=== PATIENT | male | born 1950 | race Caucasian/White ===

== ENCOUNTER 2020-06-08 06:12 | Outpatient (REF) | payer MEDICARE, SELFPAY ==
[2020-06-08 07:14] LABS: Estimated Average Glucose 111 mg/dL; Hemoglobin A1c % 5.5 %
[2020-06-08 07:36] LABS: Alanine Aminotransferase 21 U/L (0-40); Albumin Level 4.2 g/dL (3.5-5.0); Alkaline Phosphatase 51 U/L (39-117); Anion Gap 12 (12-20); Aspartate Amino Transferase 17 U/L (5-37); Bilirubin Total 0.7 mg/dL (0.0-1.0); Blood Urea Nitrogen 12 mg/dL (9-16); Calcium 9.1 mg/dL (8.4-10.2); Carbon Dioxide 33 mmol/L (22-29); Chloride 100 mmol/L (96-108); Cholesterol 169 mg/dL; Estimated Glomerular Filt Rate 58; Glucose Fasting 106 mg/dL (60-99); HDL Cholesterol 57 mg/dL; LDL Cholesterol Calculated 88 mg/dl; Potassium 4.5 mmol/l (3.3-5.1); Sodium 140 mmol/L (135-145); Total Protein 6.6 g/dL (6.5-8.0); Triglycerides 120 mg/dL
[2020-06-08 09:16] LABS: Creatinine Urine 130.07 mg/dL; Microalbum/Creatinine Ratio Ur 24.6 ug/mg cr
== END 2020-06-08 06:13 | disposition home or self-care (01) ==
LOC: HO.LABR 06:12
PROVIDERS: PCP Internal Medicine; Visit Provider Internal Medicine
DX: E11.9 Type 2 diabetes mellitus without complications (principal)
CPT/HCPCS: 80053; 80061; 82043; 83036

== ENCOUNTER 2020-10-20 08:59 | Outpatient (REF) | payer MEDICARE, SELFPAY ==
[2020-10-20 11:37] LABS: Estimated Average Glucose 114 mg/dL; Hemoglobin A1c % 5.6 %
[2020-10-20 11:48] LABS: Alanine Aminotransferase 21 U/L (0-40); Albumin Level 4.2 g/dL (3.5-5.0); Alkaline Phosphatase 55 U/L (39-117); Anion Gap 13 (12-20); Aspartate Amino Transferase 19 U/L (5-37); Bilirubin Total 0.8 mg/dL (0.0-1.0); Blood Urea Nitrogen 13 mg/dL (9-16); Calcium 8.8 mg/dL (8.4-10.2); Carbon Dioxide 30 mmol/L (22-29); Chloride 98 mmol/L (96-108); Cholesterol 143 mg/dL; Estimated Glomerular Filt Rate 53; Glucose Fasting 166 mg/dL (60-99); HDL Cholesterol 55 mg/dL; LDL Cholesterol Calculated 63 mg/dl; Potassium 4.1 mmol/L (3.3-5.1); Sodium 137 mmol/L (135-145); Total Protein 6.5 g/dL (6.5-8.0); Triglycerides 126 mg/dL
[2020-10-20 11:54] LABS: Creatinine Urine 118.99 mg/dL; Microalbum/Creatinine Ratio Ur 9.2 ug/mg cr
== END 2020-10-20 09:00 | disposition home or self-care (01) ==
LOC: HO.MANLDS 08:59
PROVIDERS: PCP Internal Medicine; Visit Provider Internal Medicine
DX: E11.9 Type 2 diabetes mellitus without complications (principal)
CPT/HCPCS: 36415; 80053; 80061; 82043; 83036

== ENCOUNTER 2021-01-27 06:02 | Outpatient (REF) | payer MEDICARE, SELFPAY ==
[2021-01-27 07:26] LABS: Alanine Aminotransferase 20 U/L (0-40); Albumin Level 4.2 g/dL (3.5-5.0); Alkaline Phosphatase 52 U/L (39-117); Anion Gap 12 (12-20); Aspartate Amino Transferase 18 U/L (5-37); Bilirubin Total 0.5 mg/dL (0.0-1.0); Blood Urea Nitrogen 10 mg/dL (9-16); Calcium 9.2 mg/dL (8.4-10.2); Carbon Dioxide 30 mmol/L (22-29); Chloride 102 mmol/L (96-108); Cholesterol 135 mg/dL; Estimated Glomerular Filt Rate 49; Glucose Random 102 mg/dL (60-115); HDL Cholesterol 51 mg/dL; LDL Cholesterol Calculated 67 mg/dl; Potassium 4.8 mmol/L (3.3-5.1); Sodium 139 mmol/L (135-145); Total Protein 6.4 g/dL (6.5-8.0); Triglycerides 85 mg/dL
[2021-01-27 08:13] LABS: Estimated Average Glucose 123 mg/dL; Hemoglobin A1c % 5.9 %
[2021-01-27 16:19] LABS: Microalbum/Creatinine Ratio Ur 3.8 ug/mg cr
== END 2021-01-27 06:03 | disposition home or self-care (01) ==
LOC: HO.LAB 06:02
PROVIDERS: PCP Internal Medicine; Visit Provider Internal Medicine
DX: E11.9 Type 2 diabetes mellitus without complications (principal)
CPT/HCPCS: 36415; 80053; 80061; 82043; 83036

== ENCOUNTER 2021-08-02 06:02 | Outpatient (REF) | payer MEDICARE, SELFPAY ==
[2021-08-02 07:21] LABS: Estimated Average Glucose 120 mg/dL; Hemoglobin A1c % 5.8 %
[2021-08-02 07:34] LABS: Alanine Aminotransferase 27 U/L (0-40); Albumin Level 4.1 g/dL (3.5-5.0); Alkaline Phosphatase 54 U/L (39-117); Anion Gap 12 (12-20); Aspartate Amino Transferase 23 U/L (5-37); Bilirubin Total 0.6 mg/dL (0.0-1.0); Blood Urea Nitrogen 12 mg/dL (9-16); Calcium 9.8 mg/dL (8.4-10.2); Carbon Dioxide 32 mmol/L (22-29); Chloride 103 mmol/L (96-108); Cholesterol 151 mg/dL; Estimated Glomerular Filt Rate 43; Glucose Random 124 mg/dL (60-115); HDL Cholesterol 53 mg/dL; LDL Cholesterol Calculated 74 mg/dl; Potassium 5.5 mmol/L (3.3-5.1); Sodium 141 mmol/L (135-145); Total Protein 6.7 g/dL (6.5-8.0); Triglycerides 124 mg/dL
== END 2021-08-02 06:03 | disposition home or self-care (01) ==
LOC: HO.LAB 06:02
PROVIDERS: PCP Internal Medicine; Visit Provider Internal Medicine
DX: E11.9 Type 2 diabetes mellitus without complications (principal)
CPT/HCPCS: 36415; 80053; 80061; 83036

== ENCOUNTER 2021-08-03 06:00 | Outpatient (REF) | payer MEDICARE, SELFPAY ==
[2021-08-03 08:05] LABS: Alanine Aminotransferase 26 U/L (0-40); Alkaline Phosphatase 53 U/L (39-117); Anion Gap 11 (12-20); Aspartate Amino Transferase 21 U/L (5-37); Bilirubin Total 0.6 mg/dL (0.0-1.0); Blood Urea Nitrogen 14 mg/dL (9-16); Calcium 9.7 mg/dL (8.4-10.2); Carbon Dioxide 31 mmol/L (22-29); Chloride 103 mmol/L (96-108); Cholesterol 146 mg/dL; Estimated Glomerular Filt Rate 45; Glucose Random 122 mg/dL (60-115); HDL Cholesterol 51 mg/dL; LDL Cholesterol Calculated 74 mg/dl; Potassium 5.1 mmol/L (3.3-5.1); Sodium 140 mmol/L (135-145); Total Protein 6.6 g/dL (6.5-8.0); Triglycerides 106 mg/dL
[2021-08-03 08:46] LABS: Estimated Average Glucose 120 mg/dL; Hemoglobin A1c % 5.8 %
== END 2021-08-03 06:01 | disposition home or self-care (01) ==
LOC: HO.LAB 06:00
PROVIDERS: PCP Internal Medicine; Visit Provider Internal Medicine
DX: E11.9 Type 2 diabetes mellitus without complications (principal)
CPT/HCPCS: 36415; 80053; 80061; 83036

== ENCOUNTER 2021-09-20 12:11 | Outpatient (REF) | payer MEDICARE, SELFPAY ==
[2021-09-20 13:31] LABS: Appearance Urine CLEAR; Color Urine YELLOW; Glucose Urine UA NEG (NEG); Leukocyte Esterase Urine NEG (NEG); Nitrite Urine NEG (NEG); PH 5.5 (5.0-8.0); UACC Culture Trigger NO; Urine Blood 1+ (NEG); Urine Ketones NEG (NEG); Urine Protein NEG (NEG-TRACE)
[2021-09-20 13:53] LABS: WBC Urine 0 /HPF (0-4)
== END 2021-09-20 12:12 | disposition home or self-care (01) ==
LOC: HO.MANLDS 12:11
PROVIDERS: PCP Physician Assistant; Visit Provider Physician Assistant
DX: R10.0 Acute abdomen (principal)
CPT/HCPCS: 81001

== ENCOUNTER 2021-11-30 06:18 | Outpatient (REF) | payer MEDICARE, SELFPAY ==
--- NOTE | ~2021-11-30 | XR_ITS ---
EXAMINATION: XR KNEE, RIGHT CLINICAL INFORMATION: Knee pain COMPARISON: None TECHNIQUE: Four views of the right knee. FINDINGS: No fracture or dislocation. No significant effusion. Small marginal patellar spurs. Joint spaces are relatively maintained. XR/XR knee RT 3V IMPRESSION: Patellar degenerative spurring. No acute osseous abnormality.
== END 2021-11-30 06:19 | disposition home or self-care (01) ==
LOC: HO.XRAY 06:18
PROVIDERS: PCP Internal Medicine; Visit Provider Internal Medicine
DX: M25.561 Pain in right knee (principal)
CPT/HCPCS: 73562

== ENCOUNTER 2021-12-28 05:59 | Outpatient (REF) | payer MEDICARE, SELFPAY ==
[2021-12-28 07:40] LABS: Estimated Average Glucose 120 mg/dL; Hemoglobin A1C 163.8914 umol/L; Hemoglobin A1c % 5.8 %
[2021-12-28 08:01] LABS: Alanine Aminotransferase 30 U/L (0-40); Albumin Level 4.2 g/dL (3.5-5.0); Alkaline Phosphatase 57 U/L (39-117); Anion Gap 12 (12-20); Aspartate Amino Transferase 21 U/L (5-37); Bilirubin Total 0.6 mg/dL (0.0-1.0); Blood Urea Nitrogen 12 mg/dL (9-16); Calcium 9.4 mg/dL (8.4-10.2); Carbon Dioxide 29 mmol/L (22-29); Chloride 102 mmol/L (96-108); Estimated Glomerular Filt Rate 48; Glucose Random 114 mg/dL (60-115); Potassium 5.3 mmol/L (3.3-5.1); Sodium 138 mmol/L (135-145); Total Protein 6.5 g/dL (6.5-8.0)
== END 2021-12-28 06:00 | disposition home or self-care (01) ==
LOC: HO.LAB 05:59
PROVIDERS: PCP Internal Medicine; Visit Provider Internal Medicine
DX: R73.01 Impaired fasting glucose (principal)
CPT/HCPCS: 36415; 80053; 83036

== ENCOUNTER 2022-06-30 06:17 | Outpatient (REF) | payer MEDICARE, SELFPAY ==
[2022-06-30 07:57] LABS: Estimated Average Glucose 114 mg/dL; Hemoglobin A1c % 5.6 %
[2022-06-30 08:33] LABS: Alanine Aminotransferase 47 U/L (0-40); Albumin Level 4.1 g/dL (3.5-5.0); Alkaline Phosphatase 56 U/L (39-117); Anion Gap 14 (12-20); Aspartate Amino Transferase 46 U/L (5-37); Bilirubin Total 0.5 mg/dL (0.0-1.0); Blood Urea Nitrogen 24 mg/dL (9-16); Calcium 8.9 mg/dL (8.4-10.2); Carbon Dioxide 28 mmol/L (22-29); Chloride 101 mmol/L (96-108); Estimated Glomerular Filt Rate 47; Glucose Random 101 mg/dL (60-115); Potassium 5.1 mmol/L (3.3-5.1); Sodium 138 mmol/L (135-145); Total Protein 6.3 g/dL (6.5-8.0)
== END 2022-06-30 06:18 | disposition home or self-care (01) ==
LOC: HO.LAB 06:17
PROVIDERS: PCP Internal Medicine; Visit Provider Internal Medicine
DX: R73.01 Impaired fasting glucose (principal)
CPT/HCPCS: 36415; 80053; 83036

== ENCOUNTER 2023-01-02 06:02 | Outpatient (REF) | payer MEDICARE, SELFPAY ==
[2023-01-02 08:04] LABS: Estimated Average Glucose 108 mg/dL; Hemoglobin A1c % 5.4 %
== END 2023-01-02 06:03 | disposition home or self-care (01) ==
LOC: HO.LAB 06:02
PROVIDERS: PCP Internal Medicine; Visit Provider Internal Medicine
DX: R73.01 Impaired fasting glucose (principal)
CPT/HCPCS: 36415; 83036

== ENCOUNTER 2023-06-06 09:03 | Outpatient (REF) | payer MEDICARE, SELFPAY ==
[2023-06-07 08:33] LABS: HBS Num1 108.81 mIU/mL (0-7.99); HBc Num1 5.89 S/CO (0.00-0.79); HBsAGNum1 0.31 S/CO (0.00-0.99); Hepatitis B Surface Antigen Negative (Negative); ~Hepatitis B Surface Antibody REACTIVE (Nonreactive)
[2023-06-07 09:47] LABS: HBc Num3 6.35 S/CO; Hepatitis B Core Antibody Reactive (Nonreactive)
== END 2023-06-06 09:04 | disposition home or self-care (01) ==
LOC: HO.MANLNP 09:03
PROVIDERS: Visit Provider Internal Medicine
DX: Z86.19 Personal history of other infectious and parasitic diseases (principal)
CPT/HCPCS: 36415; 86704; 86706; 87340

== ENCOUNTER 2023-06-26 08:29 | Outpatient (REF) | payer MEDICARE, SELFPAY ==
[2023-06-26 10:09] LABS: Alanine Aminotransferase 24 U/L (0-40); Albumin Level 4.1 g/dL (3.5-5.0); Alkaline Phosphatase 57 U/L (39-117); Anion Gap 11 (12-20); Aspartate Amino Transferase 19 U/L (5-37); Bilirubin Total 0.4 mg/dL (0.0-1.0); Blood Urea Nitrogen 15 mg/dL (9-16); Calcium 9.2 mg/dL (8.4-10.2); Carbon Dioxide 30 mmol/L (22-29); Chloride 102 mmol/L (96-108); Estimated Glomerular Filt Rate 60; Glucose Random 103 mg/dL (60-115); Potassium 4.4 mmol/L (3.3-5.1); Sodium 139 mmol/L (135-145); Total Protein 6.7 g/dL (6.5-8.0)
== END 2023-06-26 08:30 | disposition home or self-care (01) ==
LOC: HO.LAB 08:29
PROVIDERS: PCP Internal Medicine; Visit Provider Internal Medicine
DX: R73.01 Impaired fasting glucose (principal)
CPT/HCPCS: 36415; 80053

== ENCOUNTER 2023-06-27 07:40 | Outpatient (REF) | payer MEDICARE, SELFPAY ==
[2023-06-27 09:12] LABS: Estimated Average Glucose 117 mg/dL; Hemoglobin A1C 143.3119 umol/L; Hemoglobin A1c % 5.7 % (<6.0)
== END 2023-06-27 07:41 | disposition home or self-care (01) ==
LOC: HO.LAB 07:40
PROVIDERS: PCP Internal Medicine; Visit Provider Internal Medicine
DX: R73.01 Impaired fasting glucose (principal)
CPT/HCPCS: 36415; 83036

== ENCOUNTER 2023-10-20 09:01 | Outpatient (REF) | payer MEDICARE, SELFPAY ==
[2023-10-20 14:29] LABS: Estimated Average Glucose 120 mg/dL; Hemoglobin A1C 150.8553 umol/L; Hemoglobin A1c % 5.8 % (<6.0)
[2023-10-20 14:42] LABS: Creatinine Urine 215.55 mg/dL; Microalbum/Creatinine Ratio Ur 9.7 ug/mg cr (<30)
[2023-10-20 14:51] LABS: Alanine Aminotransferase 25 U/L (0-40); Alkaline Phosphatase 52 U/L (39-117); Anion Gap 12 (12-20); Aspartate Amino Transferase 21 U/L (5-37); Bilirubin Total 0.5 mg/dL (0.0-1.0); Blood Urea Nitrogen 16 mg/dL (9-16); Calcium 9.4 mg/dL (8.4-10.2); Carbon Dioxide 28 mmol/L (22-29); Chloride 106 mmol/L (96-108); Cholesterol 157 mg/dL (<200); Estimated Glomerular Filt Rate 56; Glucose Random 98 mg/dL (60-115); HDL Cholesterol 52 mg/dL (>40); LDL Cholesterol Calculated 74 mg/dL (<100); Potassium 4.6 mmol/L (3.3-5.1); Sodium 141 mmol/L (135-145); Total Protein 6.7 g/dL (6.5-8.0); Triglycerides 157 mg/dL (<150)
== END 2023-10-20 09:02 | disposition home or self-care (01) ==
LOC: HO.MANLDS 09:01
PROVIDERS: Visit Provider Internal Medicine
DX: Z13.6 Encounter for screening for cardiovascular disorders (principal); R73.01 Impaired fasting glucose
CPT/HCPCS: 36415; 80053; 80061; 82043; 82570; 83036

== ENCOUNTER 2024-04-29 07:08 | Outpatient (REF) | payer MEDICARE, SELFPAY ==
[2024-04-29 07:50] LABS: Estimated Average Glucose 114 mg/dL; Hemoglobin A1C 154.9986 umol/L; Hemoglobin A1c % 5.6 % (<6.0); Total Hemoglobin (HGBA1C) 4100.0435 umol/L
[2024-04-29 08:12] LABS: Alanine Aminotransferase 23 U/L (0-40); Albumin Level 4.5 g/dL (3.5-5.0); Alkaline Phosphatase 66 U/L (39-117); Anion Gap 15 (12-20); Aspartate Amino Transferase 26 U/L (5-37); Bilirubin Total 0.6 mg/dL (0.0-1.0); Blood Urea Nitrogen 18 mg/dL (9-16); Calcium 9.9 mg/dL (8.4-10.2); Carbon Dioxide 27 mmol/L (22-29); Chloride 100 mmol/L (96-108); Cholesterol 119 mg/dL (<200); Estimated Glomerular Filt Rate 44; Glucose Random 98 mg/dL (60-115); HDL Cholesterol 49 mg/dL (>40); LDL Cholesterol Calculated 56 mg/dL (<100); Potassium 4.3 mmol/L (3.3-5.1); Sodium 138 mmol/L (135-145); Total Protein 7.2 g/dL (6.5-8.0); Triglycerides 73 mg/dL (<150)
[2024-04-29 10:57] LABS: Creatinine Urine 348.44 mg/dL; Microalbum/Creatinine Ratio Ur 5.4 ug/mg cr (<30)
== END 2024-04-29 07:09 | disposition home or self-care (01) ==
LOC: HO.LAB 07:08
PROVIDERS: PCP Internal Medicine; Visit Provider Internal Medicine
DX: R73.01 Impaired fasting glucose (principal)
CPT/HCPCS: 36415; 80053; 80061; 82043; 82570; 83036

== ENCOUNTER 2024-05-03 09:36 | Inpatient (IN) | payer MEDICARE, SELFPAY ==
[2024-05-03] VITALS (31 sets, daily range): BP systolic 60–142; BP diastolic 29–57; PULSE 57–83; RESP 14–17; TEMP 34.4–36.5; O2SAT 97–100; BMI 27.1; BMI 27.3
--- NOTE | ~2024-05-03 | XR_ITS ---
EXAMINATION: XR CHEST CLINICAL INFORMATION: Dizziness COMPARISON: None available. TECHNIQUE: Frontal view of the chest was obtained. FINDINGS: No significant abnormality is noted involving the heart, lungs, mediastinum, bony thorax or soft tissues. XR/XR chest 1V IMPRESSION: Unremarkable examination. Electronically signed by: Penelope Carey MD 05/03/2024 12:38 PM EDT RP
--- NOTE | ~2024-05-03 | CT_ITS ---
EXAMINATION: CT CHEST, ABDOMEN AND PELVIS WITH CONTRAST CLINICAL INFORMATION: Syncope. Shock. COMPARISON: Chest radiograph done earlier the same day. TECHNIQUE: Contiguous axial thin section helical images of the chest, abdomen and pelvis were performed following the administration of oral contrast and 85 mL of intravenous Omnipaque 350. The data set was reformatted in the coronal and sagittal planes and reviewed on an independent workstation. This CT examination was performed using dose optimization techniques as appropriate, variously including the following: *Automated exposure control *Adjustment of mA and/or kV according to patient size (this includes techniques or standardized protocols for targeted exams where dose is matched to indication/reason for exam; i.e. extremities or head) *Use of iterative reconstruction technique DLP: 1127 mGy-cm FINDINGS: LUNGS: There are scattered areas of mild linear subpleural scarring, most prominent within the lateral aspect of the left upper lobe. No focal airspace consolidation. No significant pulmonary nodule or mass. The central airways are patent. PLEURA: No pleural effusion or pneumothorax. No pleural mass or thickening. MEDIASTINUM: No cardiomegaly. No significant pericardial effusion. No thoracic aortic dilatation or dissection. No significant mediastinal or hilar lymphadenopathy. CORONARY ARTERY CALCIFICATION: None present. CHEST WALL/AXILLA: No lymphadenopathy. THYROID: Unremarkable. LIVER, GALLBLADDER, AND BILIARY TREE: Normal size, shape, and attenuation. No focal hepatic lesion. No intra or extrahepatic biliary ductal dilatation. The gallbladder is unremarkable with no evidence of radiopaque gallstones, gallbladder wall thickening, or obvious pericholecystic inflammatory changes. PANCREAS: Unremarkable. SPLEEN: Unremarkable. ADRENAL GLANDS: Unremarkable. KIDNEYS AND URETERS: Normal size, shape, and attenuation. No hydronephrosis, hydroureter, or calculi. Multiple simple appearing left renal cysts with the largest in the upper pole measuring up to 6.6 cm. Findings are not clinically significant and no dedicated follow-up imaging is recommended. No enhancing renal parenchymal lesion. No perinephric stranding. BLADDER: Unremarkable. No wall thickening or inflammatory change. GASTROINTESTINAL TRACT: No small or large bowel obstruction. No bowel wall thickening or inflammatory change. Scattered sigmoid diverticulosis without evidence of acute diverticulitis. Moderate stool within the rectum. Unremarkable appendix. PERITONEAL CAVITY: No intra-abdominal free air or free fluid. No intra-abdominal mass or organized fluid collection/abscess formation. ABDOMINAL WALL: No significant abdominal wall hernia. LYMPH NODES: No significant lymphadenopathy. VASCULAR: Contrast opacifies the abdominal aorta and its branch vessels. No abdominal aortic dilatation or dissection. Scattered atherosclerotic calcifications. The IVC is unremarkable. PELVIC VISCERA: Small prostate calcifications. OSSEOUS STRUCTURES: No acute osseous abnormality. No lytic or blastic osseous lesion. CT/CT abdomen pelvis w IV con IMPRESSION: 1. Scattered areas of linear subpleural scarring, most prominent within the lateral aspect of the left upper lobe. No focal airspace consolidation. 2. No significant pulmonary nodule or mass. 3. No significant lymphadenopathy. 4. No intra-abdominal mass or ascites. 5. Moderate stool within the rectum. Sigmoid diverticulosis without evidence of acute diverticulitis. No small or large bowel obstruction. Unremarkable appendix. Electronically signed by: Adilson Kuo MD 05/03/2024 03:25 PM EDT
--- NOTE | ~2024-05-03 | CT_ITS ---
EXAMINATION: CT HEAD WITHOUT CONTRAST CLINICAL INFORMATION: unwitnessed fall, head strike COMPARISON: None available. TECHNIQUE: Contiguous axial imaging was performed from the skull base to vertex without intravenous administration of contrast. This CT examination was performed using dose optimization techniques as appropriate, variously including the following: *Automated exposure control *Adjustment of mA and/or kV according to patient size (this includes techniques or standardized protocols for targeted exams where dose is matched to indication/reason for exam; i.e. extremities or head) *Use of iterative reconstruction technique DLP: 765 mGy-cm FINDINGS: Bony calvarium is intact. Skull base is intact. No acute intracranial hemorrhage, mass effect, midline shift, hydrocephalus or herniation. Rodriguez-white matter differentiation is normal. Posterior cranial fossa contents demonstrated no acute intracranial hemorrhage or mass effect. Prominence of the extra-axial cc spaces, cerebral sulci and ventricles likely central volume loss. Calcified plaques in the cavernous segments both ICA. Tympanic cavities and mastoid air cells are aerated. No air-fluid levels in the included paranasal sinuses. CT/CT head/brain wo IV con IMPRESSION: No acute fracture, bony calvarium. No acute intracranial hemorrhage. Electronically signed by: Nura Sexton MD 05/03/2024 10:51 AM EDT
--- NOTE | ~2024-05-03 | XR_ITS ---
EXAMINATION: XR CHEST CLINICAL INFORMATION: Status post line placement. COMPARISON: Chest radiograph dated May 03, 2024 at 11:16 AM. TECHNIQUE: Frontal view of the chest was obtained. FINDINGS: There is a new right internal jugular vein catheter. The tip overlies the cavoatrial junction. The heart is normal in size. There is calcific atherosclerotic disease of the aorta. No consolidation. No large pleural effusion. No pneumothorax. No acute osseous abnormality. XR/XR chest 1V IMPRESSION: Status post placement of a right internal jugular vein catheter. The tip overlies the cavoatrial junction. No pneumothorax. The heart and lungs are otherwise unchanged in appearance compared with chest radiograph performed earlier in the day. Electronically signed by: Hermilo Braswell DO 05/03/2024 06:38 PM EDT
--- NOTE | ~2024-05-03 | CT_ITS ---
EXAMINATION: CT CERVICAL SPINE WITHOUT CONTRAST CLINICAL INFORMATION: Status post fall. COMPARISON: None available. TECHNIQUE: Contiguous axial images through the cervical spine using 3 mm collimation with bone and soft tissue algorithm. Sagittal and coronal reformatted images acquired. This CT examination was performed using dose optimization techniques as appropriate, variously including the following: *Automated exposure control *Adjustment of mA and/or kV according to patient size (this includes techniques or standardized protocols for targeted exams where dose is matched to indication/reason for exam; i.e. extremities or head) *Use of iterative reconstruction technique DLP: 354 mGy-cm FINDINGS: Craniocervical junction is intact. No acute cortical disruption. No gross trauma related malalignment. Marginal osteophyte formation and syndesmophyte formation with intervertebral disc height at C5-6, C6-7 and to a lesser extent C3-4 levels.. Right paracentral disc osteophyte complex formation resulting in decreased AP diameter in central spinal canal at C6-7. Grade 1 anterolisthesis C4-5 and C7-T1 on a degenerative basis. No gross prevertebral compartment hematoma. Tympanic cavities and mastoid air cells are aerated. CT/CT cervical spine wo IV con IMPRESSION: Multilevel cervical spondylosis without acute fracture or trauma-related listhesis Central spinal canal stenosis on a multifactorial basis at C6-7. Electronically signed by: Nura Sexton MD 05/03/2024 10:57 AM EDT
--- NOTE | 2024-05-03 09:42 | ECG_ITS ---
Test Reason : FALL Blood Pressure : / mmHG Vent. Rate : 067 BPM Atrial Rate : 067 BPM P-R Int : 122 ms QRS Dur : 088 ms QT Int : 458 ms P-R-T Axes : 073 057 052 degrees QTc Int : 483 ms Normal sinus rhythm Prolonged QT Abnormal ECG No previous ECGs available Referred By: Generic ED Physician Electronically Signed By:Scooter Biswas
--- NOTE | 2024-05-03 10:07 | ED.SYNCOPE ---
HPI - Syncope General Chief Complaint: Syncope Stated Complaint: UNKNOWN Time Seen by Provider: 05/03/24 09:57 Source: patient, EMS, RN notes reviewed and old records reviewed Mode of arrival: EMS Limitations: no limitations History of Present Illness ED Provider: Ani Dodd PA-C HPI narrative: 74 yo male with history of HTN, diverticulitis, anxiety, benign nocturnal myoclonus, depression, osteoarthritis who presents to the ER via EMS after he syncopized in the parking lot of his doctor's office today. He reports when he woke up today he was feeling his usual self. He was driving to the office for a routine appointment with his PCP when he started to get sensitivity to the light, that the sun was too bright. He made it to the office and got out of his car. When he stood up he was dizzy and does not recall what happened next. He reportedly syncopized and hit the back of his head. He was unresponsive for bystanders. No seizure like activity. On EMS arrival patient was hypotensive 60/30s. An IV was established and he was given 1L IVF and brought to the ER. On arrival patient is AAO x3 and denies all physical complaints. He reports he has been under significant stress lately and not eating well. He has been missing his medications here and there. He is reportedly on terazosin and clonazepam which he took this morning. He is also on aspirin but denies other prescription meds. Denies drug or alcohol use. MD complaint: loss of consciousness and collapsed Onset (ago): minute(s) Prodromal symptoms: lightheaded Witnessed: Yes - by Bystander Context: standing up Injuries sustained associated with event: none Current symptoms: back to baseline History: previous syncopal episode (when he was being treated for diverticulitis and was on augmentin - passed out in his kitchen he thinks from being on augmentin) Treatments prior to arrival: IV fluids Related Data Home Medications ?Medication ?Instructions ?Recorded ?Confirmed aspirin 81 mg tablet,delayed 81 mg PO DAILY 05/03/24 05/03/24 release atenolol 25 mg tablet 25 mg PO DAILY 05/03/24 05/03/24 bupropion HCl 150 mg tablet,12 hr 150 mg PO BID PRN Nicotine Cravings 05/03/24 05/03/24 sustained-release clonazepam 2 mg tablet 2 mg PO BEDTIME PRN Anxiety 05/03/24 05/03/24 enalapril maleate 20 mg tablet 20 mg PO BEDTIME 05/03/24 05/03/24 multivitamin 1 tab PO DAILY 05/03/24 05/03/24 naloxone 4 mg/actuation nasal spray 4 mg intranasal Q3M PRN Opioid 05/03/24 05/03/24 Overdose pravastatin 40 mg tablet 40 mg PO BEDTIME 05/03/24 05/03/24 terazosin 10 mg capsule 10 mg PO DAILY 05/03/24 05/03/24 trazodone 50 mg tablet 50 mg PO BEDTIME PRN Sleep 05/03/24 05/03/24 Allergies Allergy/AdvReac Type Severity Reaction Status Date / Time amoxicillin [From Augmentin] AdvReac Unknown Verified 05/03/24 09:46 clavulanic acid AdvReac Unknown Verified 05/03/24 09:46 [From Augmentin] Review of Systems Review of Systems: Yes all other systems are reviewed and are negative [facility] Social History Social History Advance Directives: No Advance Directives Information Provided: No Do you have a plan to hurt others: No Plan Physical Exam Vital Signs: Vital Signs: Last Vital Signs Temp 97.3 F 05/03/24 15:31 Pulse 69 05/03/24 15:31 Resp 15 05/03/24 15:31 BP 114/44 L 05/03/24 15:31 Pulse Ox 98 05/03/24 15:31 O2 Del Method Room Air 05/03/24 14:50 BMI result Body Mass Index 27.3 Appearance: Alert. Pale, elderly male Oriented X3. No acute distress. Head: normocephalic, there is a superficial abrasion/skin tear in the occipital region with a small amount of dried blood, no active bleeding, no significant associated swelling Eyes: Pupils equal, round and reactive to light. ENT: Pharynx with dry mucus membranes. No tonsillar swelling or exudate. Neck: Normal inspection. Neck supple. No midline tenderness CVS: Normal heart rate and rhythm. Pulses normal. Respiratory: No respiratory distress. Breath sounds normal. Abdomen: Soft and nontender. +BS x4 Skin: Skin warm and dry. Normal skin color. Normal skin turgor. No rashes. Extremities: No lower extremity edema. No joint swelling. Neuro/psych: Oriented X 3. No motor deficit. No sensory deficit. CN II-XII intact. Slightly slurred speech and normal cognition. Course Reevaluation(s) Reevaluation #1: Blood pressure improving with IV fluid resuscitation. Patient continues to have no complaints. He was placed with a Satya Hugger for hypothermia, temperature 94 degrees. Rectal probe placed. Time: 11:16 Reevaluation #2: IV fluids completed at 11:45. Focused sepsis exam performed. Patient remains hypotensive. He is tired but easily arouses to voice. He denies any pain or physical symptoms. CT scans of his abdomen and pelvis were added for further evaluation. He is getting vanco. Blood pressure currently 80/30s after IV fluid resuscitation. Will start Levophed for assumed septic shock. He is warm and well perfused, low suspicion for cardiogenic shock Time: 12:34 Medications Administered Generic Name Dose Route Start Last Admin Trade Name Freq PRN Reason Stop Dose Admin Heparin Sodium (Porcine) 5,000 unit 05/03/24 15:45 05/03/24 15:51 Heparin Sodium,Porcine 5,000 Unit/Ml Vial SUBCUT 5,000 unit Q8H HOOD Administration Norepinephrine Bitartrate 8 mg in 250 mls @ 0 mls/hr 05/03/24 12:45 05/03/24 15:19 Levophed IVCONT 0.13 mcg/kg/min .Q0M HOOD 19.26 mls/hr Titration Protocol Per Protocol Discontinued Medications Generic Name Dose Route Start Last Admin Trade Name Freq PRN Reason Stop Dose Admin Ceftriaxone Sodium 1 gm 05/03/24 10:16 05/03/24 11:01 Ceftriaxone Sodium 1 Gm Vial IVPUSH 05/03/24 10:17 1 gm ONCE ONE Administration Lactated Ringer's 2,370 mls @ 2,370 mls/hr 05/03/24 09:57 05/03/24 11:44 Lr 30 ml/kg infuse over 1 hr (2370 ml) 05/03/24 10:56 Infused IV Infusion .Q1H ONE Vancomycin HCl 2,000 mg in 500 mls @ 250 mls/hr 05/03/24 11:29 05/03/24 14:17 Vancomycin/Ns IV 05/03/24 13:28 Infused ONCE ONE Infusion Iohexol 85 ml 05/03/24 13:59 05/03/24 13:59 Iohexol 350 Mg/Ml 75 Ml Infus..Btl IV 05/03/24 14:00 85 ml ONCE ONE Administration Medical Decision Making Medical Decision Making [facility] Narrative: 74 yo male with history of HTN, anxiety on chronic klonopin, OA, benign nocturnal myoclonus who presents via EMS for evaluation of syncopal event, found to be significantly hypotensive 60/30. Given 1L IVF en route and still hypotensive 77/29 on arrival, hypothermic 94 degrees. Could be environmental exposure but there is also concern for sepsis and septic shock. He has no physical complaints, no dizziness, lightheadedness, chest pain, abdominal pain, urinary symptoms. No URI symptoms. 30c/kg LR sepsis bolus ordered along w/ empiric ceftriaxone pending workup. Labs showing no leukocytosis, mild normocytic anemia, mild thrombocytopenia. He has CKD which appears to be at baseline with BUN/Cr 19/1.56. Lactic acid is 4.0. Viral swab is negative for COVID/Flu/RSV. 11:45 - Warming blanket applied. BP slowing improving with IVF resuscitation. AAO x3 without complaints. primary concern is still sepsis, however no source identified at this time. CT scans of the chest/abd/pelvis were ordered for further evaluation. vancomycin added for additional coverage. 12:45 - requiring vasopressors for BP support. if titrating up will need central line. CT scans still pending. 15:00 - right TLC in place. CT C/A/P without obvious source of infection. lactic acid improved to 1.4. UA negative for infection. Utox + amphetamines and negative for benzos which he has been on for years. continues to require levophed, will admit to ICU for undifferentiated shock. Differential Diagnosis Differential Diagnoses: The differential diagnosis associated with the presentation includes septic shock, cardiogenic shock, dehydration, SAIRA, PNA, UTI, viral sepsis, adrenal insufficiency Admission/Observation Consideration of admission/observation: Escalation of care including admission/observation considered Consult Healthcare Provider Management of the patient was discussed with: Stamp Machine Servicer Dr. Mccloud Lab Data [facility] Lab Attestation statement: I reviewed the patient's lab results. 05/03/24 10:54 05/03/24 10:54 Labs: Lab Results 05/03/24 05/03/24 05/03/24 Range/Units 10:54 10:55 11:02 WBC 8.9 (4.8-10.8) X10*3/uL RBC 3.78 L (4.60-5.80) X10*6/uL Hgb 12.4 L (14.0-18.0) g/dl Hct 35.4 L (42.0-52.0) % MCV 93.7 (80.0-98.0) fL MCH 32.8 (27.0-33.0) pg MCHC 35.0 (31.0-36.0) g/dl RDW 12.8 (11.0-16.0) % Plt Count 142 L (160-400) X10*3/uL MPV 10.2 (9.4-12.4) fL Immature Gran % (Auto) 0.4 (0.0-0.4) % Neut % (Auto) 73.8 H (45-73) % Lymph % (Auto) 16.7 L (20-40) % [place] % (Auto) 8.5 (2-11) % Eos % (Auto) 0.3 (0-4) % Baso % (Auto) 0.3 (0-2) % Lymph # (Auto) 1.5 (1.2-4.9) X10*3/uL [place] # (Auto) 0.8 (0.1-1.2) X10*3/uL Eos # (Auto) 0.0 (0.0-0.4) X10*3/uL Baso # (Auto) 0.0 (0.0-0.2) X10*3/uL Abs Immat Gran (auto) 0.04 H (0.00-0.03) X10*3/uL Absolute Neuts (auto) 6.6 (2.0-8.3) x10*3/uL Absolute Nucleated RBC 0.000 (0.0-0.012) X10*3/uL Nucleated RBC % (auto) 0.0 (0.0-0.2) /100WBC ESR 7 (0-15) MM/HR VBG pH 7.39 (7.32-7.43) VBG pCO2 38 mmHg VBG pO2 72 mmHg VBG HCO3 23 (22-26) mmol/L VBG O2 Saturation 95.0 % VBG Base Excess -1.2 mmol/L Sodium 139 (135-145) mmol/L Potassium 4.0 (3.3-5.1) mmol/L Chloride 105 (96-108) mmol/L Carbon Dioxide 23 (22-29) mmol/L Anion Gap 15 (12-20) BUN 19 H (9-16) mg/dL Creatinine 1.56 H (0.5-1.4) mg/dL Estim Creat Clear Calc 38.8 Estimated GFR 44 Random Glucose 131 H (60-115) mg/dL Lactic Acid 4.0 H* (0.5-2.0) mmol/L Lactic Acid F/U @ 2Hr (0.5-2.0) mmol/L Calcium 8.9 D (8.4-10.2) mg/dL Total Bilirubin 0.7 (0.0-1.0) mg/dL AST 31 (5-37) U/L ALT 16 (0-40) U/L Alkaline Phosphatase 49 (39-117) U/L Troponin I High Sens 5.7 (<3.5-35.0) ng/L C-Reactive Protein 0.13 (< or = 0.50) mg/dL Total Protein 5.3 L (6.5-8.0) g/dL Albumin 3.3 L (3.5-5.0) g/dL Lipase 21 (8-78) U/L TSH 2.07 (0.32-4.0) uIU/mL Urine Color Urine Appearance Urine pH (5.0-9.0) Ur Specific [place] (1.005-1.025) Urine Protein (Neg-Trace) mg/dL Urine Glucose (UA) (Negative) mg/dL Urine Ketones (Negative) mg/dL Urine Blood (Negative) Urine Nitrite (Negative) Ur Leukocyte Esterase (Negative) Urine RBC (0-2) /HPF Urine WBC (0-5) /HPF Ur Squamous Epith Cells (0-2) /HPF Urine Bacteria (None Seen) Hyaline Casts (0-2) /LPF Urine Opiates Screen (Not Detect) Ur Buprenorphine Scrn (Not Detect) ng/mL Ur Oxycodone Screen (Not Detect) ng/mL Urine Methadone Screen (Not Detect) ng/mL Urine Fentanyl Screen (Not Detect) Ur Barbiturates Screen (Not Detect) Ur Phencyclidine Scrn (Not Detect) Ur Amphetamines Screen (Not Detect) U Benzodiazepines Scrn (Not Detect) Urine Cocaine Screen (Not Detect) U Marijuana (THC) Screen (Not Detect) Ethyl Alcohol < 10 mg/dL Influenza Type A (PCR) NEGATIVE (Negative) Influenza Type B (PCR) NEGATIVE (Negative) RSV RNA Qual (PCR) NEGATIVE (Negative) SARS-CoV-2 RNA (RT-PCR) NEGATIVE (Negative) 05/03/24 05/03/24 Range/Units 12:56 13:44 WBC (4.8-10.8) X10*3/uL RBC (4.60-5.80) X10*6/uL Hgb (14.0-18.0) g/dl Hct (42.0-52.0) % MCV (80.0-98.0) fL MCH (27.0-33.0) pg MCHC (31.0-36.0) g/dl RDW (11.0-16.0) % Plt Count (160-400) X10*3/uL MPV (9.4-12.4) fL Immature Gran % (Auto) (0.0-0.4) % Neut % (Auto) (45-73) % Lymph % (Auto) (20-40) % [place] % (Auto) (2-11) % Eos % (Auto) (0-4) % Baso % (Auto) (0-2) % Lymph # (Auto) (1.2-4.9) X10*3/uL [place] # (Auto) (0.1-1.2) X10*3/uL Eos # (Auto) (0.0-0.4) X10*3/uL Baso # (Auto) (0.0-0.2) X10*3/uL Abs Immat Gran (auto) (0.00-0.03) X10*3/uL Absolute Neuts (auto) (2.0-8.3) x10*3/uL Absolute Nucleated RBC (0.0-0.012) X10*3/uL Nucleated RBC % (auto) (0.0-0.2) /100WBC ESR (0-15) MM/HR VBG pH (7.32-7.43) VBG pCO2 mmHg VBG pO2 mmHg VBG HCO3 (22-26) mmol/L VBG O2 Saturation % VBG Base Excess mmol/L Sodium (135-145) mmol/L Potassium (3.3-5.1) mmol/L Chloride (96-108) mmol/L Carbon Dioxide (22-29) mmol/L Anion Gap (12-20) BUN (9-16) mg/dL Creatinine (0.5-1.4) mg/dL Estim Creat Clear Calc Estimated GFR Random Glucose (60-115) mg/dL Lactic Acid (0.5-2.0) mmol/L Lactic Acid F/U @ 2Hr 1.4 (0.5-2.0) mmol/L Calcium (8.4-10.2) mg/dL Total Bilirubin (0.0-1.0) mg/dL AST (5-37) U/L ALT (0-40) U/L Alkaline Phosphatase (39-117) U/L Troponin I High Sens (<3.5-35.0) ng/L C-Reactive Protein (< or = 0.50) mg/dL Total Protein (6.5-8.0) g/dL Albumin (3.5-5.0) g/dL Lipase (8-78) U/L TSH (0.32-4.0) uIU/mL Urine Color Yellow Urine Appearance Clear Urine pH 6.5 (5.0-9.0) Ur Specific [place] 1.015 (1.005-1.025) Urine Protein Trace (Neg-Trace) mg/dL Urine Glucose (UA) Negative (Negative) mg/dL Urine Ketones 15 (Negative) mg/dL Urine Blood Trace H (Negative) Urine Nitrite Negative (Negative) Ur Leukocyte Esterase Negative (Negative) Urine RBC 3-5 H (0-2) /HPF Urine WBC 0-5 (0-5) /HPF Ur Squamous Epith Cells 0-2 (0-2) /HPF Urine Bacteria None Seen (None Seen) Hyaline Casts 0-2 (0-2) /LPF Urine Opiates Screen Not Detected (Not Detect) Ur Buprenorphine Scrn Not Detected (Not Detect) ng/mL Ur Oxycodone Screen Not Detected (Not Detect) ng/mL Urine Methadone Screen Not Detected (Not Detect) ng/mL Urine Fentanyl Screen Not Detected (Not Detect) Ur Barbiturates Screen Not Detected (Not Detect) Ur Phencyclidine Scrn Not Detected (Not Detect) Ur Amphetamines Screen POSITIVE H (Not Detect) U Benzodiazepines Scrn Not Detected (Not Detect) Urine Cocaine Screen Not Detected (Not Detect) U Marijuana (THC) Screen Not Detected (Not Detect) Ethyl Alcohol mg/dL Influenza Type A (PCR) (Negative) Influenza Type B (PCR) (Negative) RSV RNA Qual (PCR) (Negative) SARS-CoV-2 RNA (RT-PCR) (Negative) Independent Interpretation I performed an independent interpretation of an: EKG, Plain X-Ray and CT Scan Interpretation: EKG with normal sinus rhythm, HR 67 bpm, artifact present. no ST segment elevations or depressions. CT head without acute bleed or edema CXR without focal infiltrate CT chest/abdomen/pelvis without focal infiltrate, some peripheral opacities in the lungs. no acute process in the abdomen. Radiology Impression Discussion of test interpretation with radiology: I have reviewed the radiologist's reading. Radiologist Impression: CT/CT abdomen pelvis w IV con IMPRESSION: 1. Scattered areas of linear subpleural scarring, most prominent within the lateral aspect of the left upper lobe. No focal airspace consolidation. 2. No significant pulmonary nodule or mass. 3. No significant lymphadenopathy. 4. No intra-abdominal mass or ascites. 5. Moderate stool within the rectum. Sigmoid diverticulosis without evidence of acute diverticulitis. No small or large bowel obstruction. Unremarkable appendix. Independent Historian Clinical information obtained from an independent historian. History obtained from or confirmed by: EMS External Record Review External record reviewed: Office record, Outpatient record, Prior outpatient labs and Prior outpatient radiology Prescription Management I considered prescription management with: Antibiotic Chronic Conditions Patient?s care impacted by: Hypertension and Other (anxiety) Procedures Central Line Placement Right IJ: Time Out Performed: Yes Patient Placed on Monitor/Pulse Ox: Yes MD Prep: mask, gown and gloves Central Line Prep: Povidone-Iodine 1%, Chlorhexidine scrub and sterile drapes applied Local Anesthetic: lidocaine 1% Amount of anesthesia used (mL): 3 Ultrasound Used for Placement: Yes Central Line Lumen Inserted: triple Post Procedure: sutured in place, good blood return, all ports aspirated, flushed, capped and sterile dressing applied Post Procedure X-Ray: tip of catheter in good position and no pneumothorax seen Patient Tolerated Procedure: well and no complications Complications: none Critical Care Time Critical Care Time Critical Care Time: Yes Total Critical Care Time: 66 Attestation: I have personally provided critical care time exclusive of time spent on separately billable procedures. Time includes review of lab data, radiology results, discussion with consultants, and monitoring for potential decompensation. Intervention performed as documented. Discharge Plan Discharge Clinical Impression: Shock, Syncope Patient Disposition: Admitted As Inpatient
[2024-05-03] MEDS: LACTATED RINGERS 2370 ML IV (10:10)
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
[2024-05-03] MEDS: cefTRIAXone sodium 1 GM VIAL IVPUSH (11:01)
[2024-05-03 11:02] LABS: MANUAL DIFF FLAG NO
[2024-05-03 11:06] LABS: Venous Blood Gas Refer to POC result
[2024-05-03 11:06] LABS: VBG Base Excess -1.2 mmol/L; VBG HCO3 23 mmol/L (22-26); VBG pCO2 38 mmHg; VBG pH 7.39 (7.32-7.43); VBG pO2 72 mmHg
[2024-05-03 11:12] LABS: Basophils Percent Auto 0.3 % (0-2); Eosinophils Percent Auto 0.3 % (0-4); Hematocrit 35.4 % (42.0-52.0); Hemoglobin 12.4 g/dl (14.0-18.0); Imm Gran Abs Auto 0.04 X10*3/uL (0.00-0.03); Imm Gran Pct Auto 0.4 % (0.0-0.4); Lymphocytes Absolute Auto 1.5 X10*3/uL (1.2-4.9); Lymphocytes Percent Auto 16.7 % (20-40); Mean Corpuscular Hemoglobin 32.8 pg (27.0-33.0); Mean Corpuscular Volume 93.7 fL (80.0-98.0); Mean Platelet Volume 10.2 fL (9.4-12.4); Monocytes Absolute Auto 0.8 X10*3/uL (0.1-1.2); Monocytes Percent Auto 8.5 % (2-11); Neutrophils Absolute Auto 6.6 x10*3/uL (2.0-8.3); Neutrophils Percent Auto 73.8 % (45-73); Platelet Count 142 X10*3/uL (160-400); Red Blood Count 3.78 X10*6/uL (4.60-5.80); Red Cell Distribution Width 12.8 % (11.0-16.0); White Blood Count 8.9 X10*3/uL (4.8-10.8)
--- NOTE | 2024-05-03 11:14 | PC.NURSE ---
Assumed care of this patient at 1100, BP still trending low, previous RN Domi hung another liter of LR per orders, rectal temp probe placed, warming blanket applied, patient placed in trendelenberg. Patient drowsy but easily arousable at this time.
[2024-05-03 11:18] LABS: Alanine Aminotransferase 16 U/L (0-40); Albumin Level 3.3 g/dL (3.5-5.0); Alkaline Phosphatase 49 U/L (39-117); Anion Gap 15 (12-20); Aspartate Amino Transferase 31 U/L (5-37); Bilirubin Total 0.7 mg/dL (0.0-1.0); Blood Urea Nitrogen 19 mg/dL (9-16); Calcium 8.9 mg/dL (8.4-10.2); Carbon Dioxide 23 mmol/L (22-29); Chloride 105 mmol/L (96-108); Creatinine Clr Calc Pharmacy 38.8; Estimated Glomerular Filt Rate 44; Glucose Random 131 mg/dL (60-115); Sodium 139 mmol/L (135-145); Total Protein 5.3 g/dL (6.5-8.0)
[2024-05-03 11:26] LABS: Troponin-I High Sensitivity 5.7 ng/L (<3.5-35.0)
[2024-05-03 11:27] LABS: C Reactive Protein 0.13 mg/dL (< or = 0.50); Ethanol < 10 mg/dL; Lipase 21 U/L (8-78)
[2024-05-03 11:39] LABS: TSH reflex Free T4 2.07 uIU/mL (0.32-4.0)
[2024-05-03 11:42] LABS: Influenza A PCR NEGATIVE (Negative); Influenza B PCR NEGATIVE (Negative); Resp Syncy Virus RNA Qual PCR NEGATIVE (Negative); SARS COV2 PCR INHOUSE NEGATIVE (Negative)
[2024-05-03] MEDS: vancomycin/NS 2,000 MG/500 ML PLAST..BAG 250 MG IV (11:44)
[2024-05-03 11:54] LABS: Erythrocyte Sedimentation Rate 7 MM/HR (0-15)
[2024-05-03] MEDS: Norepinephrine Bitartrate/D5W 8 MG/250 ML PLAST..BAG 7.41 MG IVCONT (12:43)
--- NOTE | 2024-05-03 12:57 | PC.NURSE ---
BP still trending low, Clare JEFFERSON made aware. Levophed started, straight cath for UA/ALLAN completed, patient tolerated well.
[2024-05-03 13:00] LABS: Reflex Lactate? Lactic Acid Added
[2024-05-03 13:05] LABS: Appearance Urine Clear; Color Urine Yellow; Glucose Urine UA Negative (Negative); Leukocyte Esterase Urine Negative (Negative); Nitrite Urine Negative (Negative); PH 6.5 (5.0-9.0); Specific Gravity - Urine 1.015 (1.005-1.025); UMIC TRIGGER UACC YES; Urine Blood Trace (Negative); Urine Ketones 15 mg/dL (Negative); Urine Protein Trace mg/dL (Neg-Trace)
[2024-05-03 13:07] LABS: Bacteria Urine None Seen (None Seen); Hyaline Casts Urine 0-2 /LPF (0-2); Squamous Epithelial Cell Urine 0-2 /HPF (0-2); WBC Urine 0-5 /HPF (0-5)
[2024-05-03 13:16] LABS: Amphetamine Screen Urine POSITIVE (Not Detect); Barbiturates, Urine Not Detected (Not Detect); Benzodiazepines Screen Urine Not Detected (Not Detect); Buprenorphine Scr Not Detected (Not Detect); Cannabinoid Screen Urine Not Detected (Not Detect); Cocaine Screen Urine Not Detected (Not Detect); Fentanyl, urine Not Detected (Not Detect); Methadone Screen, Urine Not Detected (Not Detect); Opiate Screen Urine Not Detected (Not Detect); Oxycodone Screen Urine Not Detected (Not Detect); Phencyclidine Screen Urine Not Detected (Not Detect)
[2024-05-03] MEDS: iohexoL 350 MG/ML 75 ML INFUS..BTL 85 ML IV (13:59)
--- NOTE | 2024-05-03 14:00 | PHA.MEDREC ---
Addendum entered by Jess Lauren RPh 05/03/24 14:14: Reviewed by [facility] Original Note: Pharmacy Consult ? Medication Reconciliation Pharmacy has completed the medication reconciliation. Confirmed medications with patient and list patient brought in from his Doctors Office. He confirmed he is still taking Bupropion 150mg but only as needed for nicotine cravings. He states he uses Trazodone 50mg tabs as needed for sleep. He confirmed he takes Clonazepam 2mg tabs, Enalapril Maleate 20mg, and Pravastatin 40mg tabs at betime and he takes his Aspirin 81mg tab, Atenolol 25mg, Multivitamin and Terazosin 10mg tabs in the morning. He states he took his medications yesterday and couldn't take any today.
[2024-05-03 14:05] LABS: ~Lactic Acid-LAB USE ONLY 1.4 mmol/L (0.5-2.0)
[2024-05-03] MEDS: Heparin Sodium,Porcine 5,000 UNIT/ML VIAL 5000 UNIT SUBCUT ×2 (15:51→23:38)
--- NOTE | 2024-05-03 16:22 | PC.NURSE ---
RN to RN phone report given to Kirstie in the ICU, all questions answered, patient transported to the ICU without issue.
--- NOTE | 2024-05-03 16:37 | P.HPCC_ITS ---
History of Present Illness Date of Service: 05/03/24 Chief Complaint: Syncope, hypotension 74-year-old gentleman with underlying history of diverticulitis, anxiety, benign nocturnal myoclonus, depression admitted on 05/03/2024 for syncopal episode without prodrome that happened when patient was visiting his primary care provider. Patient was transferred to emergency room and noted to be hypotensive with systolic blood pressure in 60s with poor response to initial IV fluid resuscitation, started on pressor support and empiric antibiotics, and admitted to the intensive care unit. Initial workup with no obvious source for clinically observed shock. Off note, patient is positive for amphetamines with no amphetamines on his prescription list. Review of Systems 2 Constitutional: Constitutional: Denies daytime sleepiness, Denies excessive sweating, Denies fatigue, Denies fever(s), Denies lethargy, Denies malaise, Denies night sweats, Denies snoring and Denies weight loss Eyes: Eyes: Denies blurry vision and Denies itchy eyes ENT: Denies nasal congestion, Denies post nasal drip, Denies sinus pain, Denies sinus pressure and Denies other ( Thrush) Cardiovascular: Cardiovascular: Denies chest pain, Denies pedal edema, Denies dyspnea, Denies orthopnea and Denies paroxysmal nocturnal dyspnea Respiratory: Respiratory: Denies cough, Denies hemoptysis, Denies excessive phlegm production, Denies dyspnea, Denies snoring and Denies wheezing Gastrointestinal: Gastrointestinal: Denies abdominal pain and Denies heartburn Musculoskeletal: Musculoskeletal: Denies myalgias, Denies arthralgias and Denies joint swelling Integumentary/Breasts: Skin/Breast: Denies rash Neurologic: Denies memory loss and Denies seizure-like activity Psychiatric: Psychiatric: Denies abnormal sleep pattern, Denies anxiety and Denies memory loss Endocrine: Endocrine: Denies excessive sweating, Denies fatigue and Denies heat intolerance Hematologic/Lymphatic: Hematologic/Lymphatic: Denies easy bruising Allergic/Immunologic: Allergic/Immunologic: Denies itchy eyes, Denies seasonal rhinorrhea and Denies wheezing PMFSH Social History Social History Advance Directives: No Advance Directives Information Provided: No Do you have a plan to hurt others: No Plan Meds Allergies Allergy/AdvReac Type Severity Reaction Status Date / Time amoxicillin [From Augmentin] AdvReac Unknown Verified 05/03/24 09:46 clavulanic acid AdvReac Unknown Verified 05/03/24 09:46 [From Augmentin] Active Medications: Current Medications Heparin Sodium (Porcine) (Heparin Sodium,Porcine 5,000 Unit/Ml Vial) 5,000 unit SUBCUT Q8H [facility] Last Admin: 05/03/24 15:51 Dose: 5,000 unit Norepinephrine Bitartrate (Levophed) 8 mg in 250 mls @ 0 mls/hr IVCONT .Q0M HOOD; Protocol Last Titration: 05/03/24 15:19 Dose: 0.13 mcg/kg/min, 19.26 mls/hr Home Medications ?Medication ?Instructions ?Recorded ?Confirmed ?Last Taken ?Type aspirin 81 mg tablet,delayed 81 mg PO DAILY 05/03/24 05/03/24 05/02/24 History release atenolol 25 mg tablet 25 mg PO DAILY 05/03/24 05/03/24 05/02/24 History bupropion HCl 150 mg tablet,12 hr 150 mg PO BID PRN Nicotine Cravings 05/03/24 05/03/24 Unknown History sustained-release clonazepam 2 mg tablet 2 mg PO BEDTIME PRN Anxiety 05/03/24 05/03/24 Unknown History enalapril maleate 20 mg tablet 20 mg PO BEDTIME 05/03/24 05/03/24 05/02/24 History multivitamin 1 tab PO DAILY 05/03/24 05/03/24 05/02/24 History naloxone 4 mg/actuation nasal spray 4 mg intranasal Q3M PRN Opioid 05/03/24 05/03/24 Unknown History Overdose pravastatin 40 mg tablet 40 mg PO BEDTIME 05/03/24 05/03/24 05/02/24 History terazosin 10 mg capsule 10 mg PO DAILY 05/03/24 05/03/24 05/02/24 History trazodone 50 mg tablet 50 mg PO BEDTIME PRN Sleep 05/03/24 05/03/24 Unknown History Physical Exam 2 Vital Signs: Vital Signs: Last Vital Signs Temp 97.3 F 05/03/24 15:31 Pulse 69 05/03/24 15:31 Resp 15 05/03/24 15:31 BP 114/44 L 05/03/24 15:31 Pulse Ox 98 05/03/24 15:32 O2 Del Method Room Air 05/03/24 15:32 BMI result Body Mass Index 27.3 Const: General: no acute distress and alert Nutritional Appearance: not obese Orientation/consciousness: Other orientation findings ( oriented) HEENT: Head: Yes atraumatic Eyes: General: appearance normal, both eyes and all related structures S clerae: sclerae normal EOM: EOMs intact bilaterally Neck: Neck: Yes supple Lymphatic: no lymphadenopathy noted Resp: Effort & Inspection: normal respiratory effort and no use of accessory muscles Auscultation: clear to auscultation bilaterally Cardio: Rate: regular rate Rhythm: regular rhythm Heart sounds: no gallops, no murmurs and no rubs Skin: General skin exam: other ( warm) Extrem: General: No clubbing, No cyanosis and No edema Results Labs 05/03/24 10:54 05/03/24 10:54 Labs: Laboratory Results - last 24 hr 05/03/24 05/03/24 05/03/24 10:54 10:55 11:02 MCV 93.7 MCH 32.8 MCHC 35.0 RDW 12.8 Plt Count 142 L MPV 10.2 Immature Gran % (Auto) 0.4 Neut % (Auto) 73.8 H Lymph % (Auto) 16.7 L Love % (Auto) 8.5 Eos % (Auto) 0.3 Baso % (Auto) 0.3 Lymph # (Auto) 1.5 Love # (Auto) 0.8 Eos # (Auto) 0.0 Baso # (Auto) 0.0 Abs Immat Gran (auto) 0.04 H Absolute Neuts (auto) 6.6 Absolute Nucleated RBC 0.000 Nucleated RBC % (auto) 0.0 ESR 7 VBG pH 7.39 VBG pCO2 38 VBG pO2 72 VBG HCO3 23 VBG O2 Saturation 95.0 VBG Base Excess -1.2 Anion Gap 15 Estim Creat Clear Calc 38.8 Estimated GFR 44 Random Glucose 131 H Lactic Acid 4.0 H* Lactic Acid F/U @ 2Hr Calcium 8.9 D Total Bilirubin 0.7 AST 31 ALT 16 Alkaline Phosphatase 49 Troponin I High Sens 5.7 C-Reactive Protein 0.13 Total Protein 5.3 L Albumin 3.3 L Lipase 21 TSH 2.07 Urine Color Urine Appearance Urine pH Ur Specific [place] Urine Protein Urine Glucose (UA) Urine Ketones Urine Blood Urine Nitrite Ur Leukocyte Esterase Urine RBC Urine WBC Ur Squamous Epith Cells Urine Bacteria Hyaline Casts Urine Opiates Screen Ur Buprenorphine Scrn Ur Oxycodone Screen Urine Methadone Screen Urine Fentanyl Screen Ur Barbiturates Screen Ur Phencyclidine Scrn Ur Amphetamines Screen U Benzodiazepines Scrn Urine Cocaine Screen U Marijuana (THC) Screen Ethyl Alcohol < 10 Influenza Type A (PCR) NEGATIVE Influenza Type B (PCR) NEGATIVE RSV RNA Qual (PCR) NEGATIVE SARS-CoV-2 RNA (RT-PCR) NEGATIVE 05/03/24 05/03/24 12:56 13:44 MCV MCH MCHC RDW Plt Count MPV Immature Gran % (Auto) Neut % (Auto) Lymph % (Auto) Love % (Auto) Eos % (Auto) Baso % (Auto) Lymph # (Auto) Love # (Auto) Eos # (Auto) Baso # (Auto) Abs Immat Gran (auto) Absolute Neuts (auto) Absolute Nucleated RBC Nucleated RBC % (auto) ESR VBG pH VBG pCO2 VBG pO2 VBG HCO3 VBG O2 Saturation VBG Base Excess Anion Gap Estim Creat Clear Calc Estimated GFR Random Glucose Lactic Acid Lactic Acid F/U @ 2Hr 1.4 Calcium Total Bilirubin AST ALT Alkaline Phosphatase Troponin I High Sens C-Reactive Protein Total Protein Albumin Lipase TSH Urine Color Yellow Urine Appearance Clear Urine pH 6.5 Ur Specific [place] 1.015 Urine Protein Trace Urine Glucose (UA) Negative Urine Ketones 15 Urine Blood Trace H Urine Nitrite Negative Ur Leukocyte Esterase Negative Urine RBC 3-5 H Urine WBC 0-5 Ur Squamous Epith Cells 0-2 Urine Bacteria None Seen Hyaline Casts 0-2 Urine Opiates Screen Not Detected Ur Buprenorphine Scrn Not Detected Ur Oxycodone Screen Not Detected Urine Methadone Screen Not Detected Urine Fentanyl Screen Not Detected Ur Barbiturates Screen Not Detected Ur Phencyclidine Scrn Not Detected Ur Amphetamines Screen POSITIVE H U Benzodiazepines Scrn Not Detected Urine Cocaine Screen Not Detected U Marijuana (THC) Screen Not Detected Ethyl Alcohol Influenza Type A (PCR) Influenza Type B (PCR) RSV RNA Qual (PCR) SARS-CoV-2 RNA (RT-PCR) Imaging Radiologist's Impressions: Impressions Head CT 05/03/24 10:05 IMPRESSION: No acute fracture, bony calvarium. No acute intracranial hemorrhage. Electronically signed by: Nura Sexton MD 05/03/2024 10:51 AM EDT RP Cervical Spine CT 05/03/24 10:16 IMPRESSION: Multilevel cervical spondylosis without acute fracture or trauma-related listhesis Central spinal canal stenosis on a multifactorial basis at C6-7. Electronically signed by: Nura Sexton MD 05/03/2024 10:57 AM EDT RP Chest X-Ray 05/03/24 10:17 IMPRESSION: Unremarkable examination. Electronically signed by: Penelope Carey MD 05/03/2024 12:38 PM EDT RP Chest CT 05/03/24 11:51 IMPRESSION: 1. Scattered areas of linear subpleural scarring, most prominent within the lateral aspect of the left upper lobe. No focal airspace consolidation. 2. No significant pulmonary nodule or mass. 3. No significant lymphadenopathy. 4. No intra-abdominal mass or ascites. 5. Moderate stool within the rectum. Sigmoid diverticulosis without evidence of acute diverticulitis. No small or large bowel obstruction. Unremarkable appendix. Electronically signed by: Adilson Kuo MD 05/03/2024 03:25 PM EDT Abdomen/Pelvis CT 05/03/24 13:55 IMPRESSION: 1. Scattered areas of linear subpleural scarring, most prominent within the lateral aspect of the left upper lobe. No focal airspace consolidation. 2. No significant pulmonary nodule or mass. 3. No significant lymphadenopathy. 4. No intra-abdominal mass or ascites. 5. Moderate stool within the rectum. Sigmoid diverticulosis without evidence of acute diverticulitis. No small or large bowel obstruction. Unremarkable appendix. Electronically signed by: Adilson Kuo MD 05/03/2024 03:25 PM EDT RP Assessment and Plan (1) Syncope: Qualifiers: Syncope type: unspecified Qualified Code(s): R55 - Syncope and collapse Status: Acute (2) Shock: Status: Acute Plan Assessment: 74-year-old gentleman admitted with undifferentiated shock with no obvious septic source requiring pressor support Plan: Neuro: No acute issues. Cardiac: Undifferentiated shock, no clear septic or cardiac etiology, continue to titrate off pressor support as tolerated. Pulmonary: No acute issues. Renal: No acute issues. Endo: No acute issues. GI: No acute issues. ID: Empiric broad-spectrum antibiotics. Blood cultures are positive. Heme/Onc: No acute issues. Psych: No acute issues. Miscellaneous: Possible underlying substance abuse. Prophylaxis: Heparin Diet: Regular Critical care time spent: 45 minutes
[2024-05-03] MEDS: Norepinephrine Bitartrate/D5W 8 MG/250 ML PLAST..BAG 10.37 MG IVCONT (23:36)
[2024-05-04] VITALS (17 sets, daily range): BP systolic 105–132; BP diastolic 45–63; PULSE 50–80; RESP 13–20; TEMP 36.2–36.5; O2SAT 95–99
[2024-05-04 04:44] LABS: VBG HCO3 26 mmol/L (22-26); VBG pCO2 42 mmHg; VBG pH 7.39 (7.32-7.43); VBG pO2 49 mmHg
[2024-05-04 04:53] LABS: MANUAL DIFF FLAG NO
[2024-05-04 05:03] LABS: Basophils Percent Auto 0.3 % (0-2); Eosinophils Absolute Auto 0.1 X10*3/uL (0.0-0.4); Eosinophils Percent Auto 0.9 % (0-4); Hematocrit 36.1 % (42.0-52.0); Hemoglobin 12.9 g/dl (14.0-18.0); Imm Gran Abs Auto 0.02 X10*3/uL (0.00-0.03); Imm Gran Pct Auto 0.3 % (0.0-0.4); Lymphocytes Absolute Auto 1.6 X10*3/uL (1.2-4.9); Lymphocytes Percent Auto 24.6 % (20-40); Mean Corpuscular HGB Conc 35.7 g/dl (31.0-36.0); Mean Corpuscular Hemoglobin 32.8 pg (27.0-33.0); Mean Corpuscular Volume 91.9 fL (80.0-98.0); Monocytes Absolute Auto 0.9 X10*3/uL (0.1-1.2); Monocytes Percent Auto 12.7 % (2-11); Neutrophils Absolute Auto 4.1 x10*3/uL (2.0-8.3); Neutrophils Percent Auto 61.2 % (45-73); Platelet Count 145 X10*3/uL (160-400); Red Blood Count 3.93 X10*6/uL (4.60-5.80); Red Cell Distribution Width 12.4 % (11.0-16.0); White Blood Count 6.7 X10*3/uL (4.8-10.8)
[2024-05-04 05:21] LABS: Alanine Aminotransferase 17 U/L (0-40); Albumin Level 3.2 g/dL (3.5-5.0); Alkaline Phosphatase 49 U/L (39-117); Anion Gap 12 (12-20); Aspartate Amino Transferase 28 U/L (5-37); Bilirubin Total 0.6 mg/dL (0.0-1.0); Blood Urea Nitrogen 14 mg/dL (9-16); Calcium 8.5 mg/dL (8.4-10.2); Carbon Dioxide 25 mmol/L (22-29); Chloride 106 mmol/L (96-108); Creatinine Clr Calc Pharmacy 55.5; Estimated Glomerular Filt Rate > 60; Glucose Random 106 mg/dL (60-115); Magnesium 1.7 mg/dL (1.6-2.6); Phosphorus 3.6 mg/dL (2.7-4.5); Potassium 3.8 mmol/L (3.3-5.1); Sodium 139 mmol/L (135-145); Total Protein 5.1 g/dL (6.5-8.0)
[2024-05-04] MEDS: Albumin Human 25 % 100 ML IV ×4 (05:58→23:02)
[2024-05-04] MEDS: Heparin Sodium,Porcine 5,000 UNIT/ML VIAL 5000 UNIT SUBCUT ×3 (08:11→23:01)
--- NOTE | 2024-05-04 09:51 | P.PNCC_ITS ---
Subjective Subjective Date of Service: 05/04/24 Interval History: 74-year-old gentleman with underlying history of diverticulitis, anxiety, benign nocturnal myoclonus, depression admitted on 05/03/2024 for syncopal episode without prodrome that happened when patient was visiting his primary care provider. Patient was transferred to emergency room and noted to be hypotensive with systolic blood pressure in 60s with poor response to initial IV fluid resuscitation, started on pressor support and empiric antibiotics, and admitted to the intensive care unit. Initial workup with no obvious source for clinically observed shock. Of note, patient is positive for amphetamines with no amphetamines on his prescription list. No events overnight. Titrated off pressor support. Critical Care Time (minutes): 0 Physical Exam 2 Vital Signs: Vital Signs: Last Vital Signs Temp 97.5 F 05/04/24 09:00 Pulse 66 05/04/24 09:00 Resp 18 05/04/24 09:00 BP 119/47 L 05/04/24 09:00 Pulse Ox 99 05/04/24 09:00 O2 Del Method Room Air 05/04/24 09:00 BMI result Body Mass Index 27.3 Const: General: no acute distress, alert and awake Eyes: Sclerae: sclerae normal EOM: EOMs intact bilaterally Neck: Neck: Yes no lymphadenopathy, Yes trachea midline and Yes supple Resp: Effort & Inspection: normal respiratory effort and no respiratory distress Auscultation: clear to auscultation bilaterally Cardio: Rate: regular rate Rhythm: regular rhythm Heart sounds: no gallops, no murmurs and no rubs GI: Palpation (GI): Soft to palpation and Other GI palpation findings present ( Nontender) Auscultation: normal bowel sounds Extrem: General: Yes no pedal edema, No clubbing and No cyanosis Objective Data Labs 05/04/24 04:33 05/04/24 04:34 Labs: Laboratory Results - last 24 hr 05/03/24 05/03/24 05/03/24 10:54 10:55 11:02 WBC 8.9 RBC 3.78 L Hgb 12.4 L Hct 35.4 L MCV 93.7 MCH 32.8 MCHC 35.0 RDW 12.8 Plt Count 142 L MPV 10.2 Immature Gran % (Auto) 0.4 Neut % (Auto) 73.8 H Lymph % (Auto) 16.7 L [place] % (Auto) 8.5 Eos % (Auto) 0.3 Baso % (Auto) 0.3 Lymph # (Auto) 1.5 [place] # (Auto) 0.8 Eos # (Auto) 0.0 Baso # (Auto) 0.0 Abs Immat Gran (auto) 0.04 H Absolute Neuts (auto) 6.6 Absolute Nucleated RBC 0.000 Nucleated RBC % (auto) 0.0 ESR 7 VBG pH 7.39 VBG pCO2 38 VBG pO2 72 VBG HCO3 23 VBG O2 Saturation 95.0 VBG Base Excess -1.2 Sodium 139 Potassium 4.0 Chloride 105 Carbon Dioxide 23 Anion Gap 15 BUN 19 H Creatinine 1.56 H Estim Creat Clear Calc 38.8 Estimated GFR 44 Random Glucose 131 H Lactic Acid 4.0 H* Lactic Acid F/U @ 2Hr Calcium 8.9 D Phosphorus Magnesium Total Bilirubin 0.7 AST 31 ALT 16 Alkaline Phosphatase 49 Troponin I High Sens 5.7 C-Reactive Protein 0.13 Total Protein 5.3 L Albumin 3.3 L Lipase 21 TSH 2.07 Urine Color Urine Appearance Urine pH Ur Specific [place] Urine Protein Urine Glucose (UA) Urine Ketones Urine Blood Urine Nitrite Ur Leukocyte Esterase Urine RBC Urine WBC Ur Squamous Epith Cells Urine Bacteria Hyaline Casts Urine Opiates Screen Ur Buprenorphine Scrn Ur Oxycodone Screen Urine Methadone Screen Urine Fentanyl Screen Ur Barbiturates Screen Ur Phencyclidine Scrn Ur Amphetamines Screen U Benzodiazepines Scrn Urine Cocaine Screen U Marijuana (THC) Screen Ethyl Alcohol < 10 Influenza Type A (PCR) NEGATIVE Influenza Type B (PCR) NEGATIVE RSV RNA Qual (PCR) NEGATIVE SARS-CoV-2 RNA (RT-PCR) NEGATIVE 05/03/24 05/03/24 05/04/24 12:56 13:44 04:33 WBC 6.7 RBC 3.93 L Hgb 12.9 L Hct 36.1 L MCV 91.9 MCH 32.8 MCHC 35.7 RDW 12.4 Plt Count 145 L MPV 10.0 Immature Gran % (Auto) 0.3 Neut % (Auto) 61.2 Lymph % (Auto) 24.6 [place] % (Auto) 12.7 H Eos % (Auto) 0.9 Baso % (Auto) 0.3 Lymph # (Auto) 1.6 [place] # (Auto) 0.9 Eos # (Auto) 0.1 Baso # (Auto) 0.0 Abs Immat Gran (auto) 0.02 Absolute Neuts (auto) 4.1 Absolute Nucleated RBC 0.000 Nucleated RBC % (auto) 0.0 ESR VBG pH 7.39 VBG pCO2 42 VBG pO2 49 VBG HCO3 26 VBG O2 Saturation 76.0 VBG Base Excess 1.0 Sodium Potassium Chloride Carbon Dioxide Anion Gap BUN Creatinine Estim Creat Clear Calc Estimated GFR Random Glucose Lactic Acid Lactic Acid F/U @ 2Hr 1.4 Calcium Phosphorus Magnesium Total Bilirubin AST ALT Alkaline Phosphatase Troponin I High Sens C-Reactive Protein Total Protein Albumin Lipase TSH Urine Color Yellow Urine Appearance Clear Urine pH 6.5 Ur Specific [place] 1.015 Urine Protein Trace Urine Glucose (UA) Negative Urine Ketones 15 Urine Blood Trace H Urine Nitrite Negative Ur Leukocyte Esterase Negative Urine RBC 3-5 H Urine WBC 0-5 Ur Squamous Epith Cells 0-2 Urine Bacteria None Seen Hyaline Casts 0-2 Urine Opiates Screen Not Detected Ur Buprenorphine Scrn Not Detected Ur Oxycodone Screen Not Detected Urine Methadone Screen Not Detected Urine Fentanyl Screen Not Detected Ur Barbiturates Screen Not Detected Ur Phencyclidine Scrn Not Detected Ur Amphetamines Screen POSITIVE H U Benzodiazepines Scrn Not Detected Urine Cocaine Screen Not Detected U Marijuana (THC) Screen Not Detected Ethyl Alcohol Influenza Type A (PCR) Influenza Type B (PCR) RSV RNA Qual (PCR) SARS-CoV-2 RNA (RT-PCR) 05/04/24 04:34 WBC RBC Hgb Hct MCV MCH MCHC RDW Plt Count MPV Immature Gran % (Auto) Neut % (Auto) Lymph % (Auto) [place] % (Auto) Eos % (Auto) Baso % (Auto) Lymph # (Auto) [place] # (Auto) Eos # (Auto) Baso # (Auto) Abs Immat Gran (auto) Absolute Neuts (auto) Absolute Nucleated RBC Nucleated RBC % (auto) ESR VBG pH VBG pCO2 VBG pO2 VBG HCO3 VBG O2 Saturation VBG Base Excess Sodium 139 Potassium 3.8 Chloride 106 Carbon Dioxide 25 Anion Gap 12 BUN 14 Creatinine 1.09 Estim Creat Clear Calc 55.5 Estimated GFR > 60 Random Glucose 106 Lactic Acid Lactic Acid F/U @ 2Hr Calcium 8.5 Phosphorus 3.6 Magnesium 1.7 Total Bilirubin 0.6 AST 28 ALT 17 Alkaline Phosphatase 49 Troponin I High Sens C-Reactive Protein Total Protein 5.1 L Albumin 3.2 L Lipase TSH Urine Color Urine Appearance Urine pH Ur Specific [place] Urine Protein Urine Glucose (UA) Urine Ketones Urine Blood Urine Nitrite Ur Leukocyte Esterase Urine RBC Urine WBC Ur Squamous Epith Cells Urine Bacteria Hyaline Casts Urine Opiates Screen Ur Buprenorphine Scrn Ur Oxycodone Screen Urine Methadone Screen Urine Fentanyl Screen Ur Barbiturates Screen Ur Phencyclidine Scrn Ur Amphetamines Screen U Benzodiazepines Scrn Urine Cocaine Screen U Marijuana (THC) Screen Ethyl Alcohol Influenza Type A (PCR) Influenza Type B (PCR) RSV RNA Qual (PCR) SARS-CoV-2 RNA (RT-PCR) Progress Note: A&P Assessment and plan (1) Syncope: Status: Acute (2) Shock: Status: Acute Plan Assessment: 74-year-old gentleman admitted with undifferentiated shock with no obvious septic source requiring pressor support Plan: Neuro: No acute issues. Cardiac: Undifferentiated shock, no clear septic or cardiac etiology, resolved.. Pulmonary: No acute issues. Renal: No acute issues. Endo: No acute issues. GI: No acute issues. ID: Empiric ceftriaxone. Blood cultures are pending. Heme/Onc: No acute issues. Psych: No acute issues. Miscellaneous: Possible underlying substance abuse. Prophylaxis: Heparin Diet: Regular Quality Stroke Does the patient have a stroke diagnosis?: No VTE Prior VTE?: No VTE Risk Level:: Medical - moderate - high VTE Device Contraindication: Treatment Not Indicated VTE Drug Contraindication: N/A - Med Ordered
--- NOTE | 2024-05-04 10:26 | PM.EVENT ---
Event Note Date of Service: 05/04/24 Event Note: Discussed case with ICU attending. admitted for hypotension, s/p IVF, pressors. Off pressors overnight, stable BP Time Spent With Patient Time: Total time managing care of this patient today ____ minutes.
[2024-05-04] MEDS: cefTRIAXone sodium 1 GM VIAL IVPUSH (12:25)
--- NOTE | 2024-05-04 15:33 | MHC.CM.PN ---
IMM DELIVERED. PATIENT LIVES IN A HOME ALONE. FUNCTIONALLY INDEPENDENT. DENIES USE OF DME OR SERVICES. PCP ALISSA OVALLE MD REPORTS HE HAS AN HCP LISTING HIS SISTER, ANUJ, [facility]. COPY REQUESTED. DP: GOAL IS HOME, SELF CARE, FAMILY TO TRANSPORT. CM WILL CONTINUE TO FOLLOW.
[2024-05-04 18:59] LABS: Venous Blood Gas Refer to POC result
[2024-05-05 03:08] VITALS: BP 122/66; PULSE 71; RESP 18; TEMP 36.5; O2SAT 97
[2024-05-05 05:55] LABS: MANUAL DIFF FLAG NO
[2024-05-05 06:01] LABS: Basophils Percent Auto 0.5 % (0-2); Eosinophils Absolute Auto 0.1 X10*3/uL (0.0-0.4); Eosinophils Percent Auto 1.8 % (0-4); Hematocrit 37.4 % (42.0-52.0); Hemoglobin 12.9 g/dl (14.0-18.0); Imm Gran Abs Auto 0.02 X10*3/uL (0.00-0.03); Imm Gran Pct Auto 0.3 % (0.0-0.4); Lymphocytes Absolute Auto 1.9 X10*3/uL (1.2-4.9); Lymphocytes Percent Auto 30.1 % (20-40); Mean Corpuscular HGB Conc 34.5 g/dl (31.0-36.0); Mean Corpuscular Hemoglobin 32.3 pg (27.0-33.0); Mean Corpuscular Volume 93.5 fL (80.0-98.0); Mean Platelet Volume 10.3 fL (9.4-12.4); Monocytes Absolute Auto 0.8 X10*3/uL (0.1-1.2); Monocytes Percent Auto 12.6 % (2-11); Neutrophils Absolute Auto 3.4 x10*3/uL (2.0-8.3); Neutrophils Percent Auto 54.7 % (45-73); Platelet Count 144 X10*3/uL (160-400); Red Cell Distribution Width 12.8 % (11.0-16.0); White Blood Count 6.3 X10*3/uL (4.8-10.8)
[2024-05-05 06:19] LABS: Albumin Level 4.1 g/dL (3.5-5.0); Anion Gap 12 (12-20); Blood Urea Nitrogen 18 mg/dL (9-16); Calcium 9.2 mg/dL (8.4-10.2); Carbon Dioxide 28 mmol/L (22-29); Chloride 105 mmol/L (96-108); Creatinine Clr Calc Pharmacy 52.2; Estimated Glomerular Filt Rate > 60; Glucose Random 108 mg/dL (60-115); Magnesium 1.8 mg/dL (1.6-2.6); Phosphorus 3.3 mg/dL (2.7-4.5); Potassium 3.9 mmol/L (3.3-5.1); Sodium 141 mmol/L (135-145)
[2024-05-05 07:46] VITALS: BP 136/68; PULSE 65; RESP 16; TEMP 36.7; O2SAT 100
[2024-05-05] MEDS: Heparin Sodium,Porcine 5,000 UNIT/ML VIAL 5000 UNIT SUBCUT (08:10)
[2024-05-05] MEDS: cefTRIAXone sodium 1 GM VIAL IVPUSH (12:01)
[2024-05-05 12:04] VITALS: BP 154/67; PULSE 69
[2024-05-05 12:05] VITALS: BP 150/62; BP 154/67; PULSE 68; PULSE 73
--- NOTE | 2024-05-05 12:58 | PM.DS ---
DS: Providers Provider Date of Service: 05/05/24 Date of admission: 05/03/24 15:32 Primary care physician: Fran Strickland MD DS: Diagnosis Discharge Diagnosis (1) Syncope: Status: Acute (2) Shock: Status: Acute DS: Summary Hospital Course Hospital Course: History and physical as per admitting provider. 74-year-old gentleman with underlying history of diverticulitis, anxiety, benign nocturnal myoclonus, depression admitted on 05/03/2024 for syncopal episode without prodrome that happened when patient was visiting his primary care provider. Patient was transferred to emergency room and noted to be hypotensive with systolic blood pressure in 60s with poor response to initial IV fluid resuscitation, started on pressor support and empiric antibiotics, and admitted to the intensive care unit. Initial workup with no obvious source for clinically observed shock. Off note, patient is positive for amphetamines with no amphetamines on his prescription list. 74-year-old man admitted to ICU for syncopal episode and found to be hypotensive with systolic blood pressure as low as 60 with poor response to initial IV fluid resuscitation. Transferred to ICU for pressor support and empiric antibiotics. Patient did report that he had missed his blood pressure medications for 2 days and took it this morning just before going to see his primary care provider. Initially thought to be septic shock but seems more like hypotensive episode. Okay to continue home atenolol, will decrease enalapril to 10 mg daily. Mental health . Continue home medications Hyperlipidemia Continue aspirin and statin BPH. Continue terazosin No septic shock hospitalization Time Attestation Discharge Coordination Time (in mins): 40 Quality: Safe Use of Opioids Does Pt have an Active Cancer Diagnosis on the Problem List?: No Quality: Stroke Does the patient have a stroke diagnosis?: No Physical Exam Vital Signs: Vital Signs: Last Vital Signs Temp 98.0 F 05/05/24 07:46 Pulse 73 05/05/24 12:05 Resp 16 05/05/24 07:46 BP 150/62 H 05/05/24 12:05 Pulse Ox 100 05/05/24 07:46 O2 Del Method Room Air 05/05/24 07:46 BMI result Body Mass Index 27.3 Appearing in no acute distress head is normocephalic atraumatic eyes pupils are PERRLA sclera is anicteric mouth throat mucous membranes are intact and moist neck is supple no lymphadenopathy, no JVD noted lung sounds are clear to auscultation heart regular rate rhythm, clear S1, S2 positive bowel sounds, abdomen is soft, nontender neuro patient is alert x3, no focal deficits DS: Data Data Completed and Pending Labs on day of discharge: Laboratory Results - last 24 hr 05/05/24 05:27 WBC 6.3 RBC 4.00 L Hgb 12.9 L Hct 37.4 L MCV 93.5 MCH 32.3 MCHC 34.5 RDW 12.8 Plt Count 144 L MPV 10.3 Immature Gran % (Auto) 0.3 Neut % (Auto) 54.7 Lymph % (Auto) 30.1 [place] % (Auto) 12.6 H Eos % (Auto) 1.8 Baso % (Auto) 0.5 Lymph # (Auto) 1.9 [place] # (Auto) 0.8 Eos # (Auto) 0.1 Baso # (Auto) 0.0 Abs Immat Gran (auto) 0.02 Absolute Neuts (auto) 3.4 Absolute Nucleated RBC 0.000 Nucleated RBC % (auto) 0.0 Sodium 141 Potassium 3.9 Chloride 105 Carbon Dioxide 28 Anion Gap 12 BUN 18 H Creatinine 1.16 Estim Creat Clear Calc 52.2 Estimated GFR > 60 Random Glucose 108 Calcium 9.2 D Phosphorus 3.3 Magnesium 1.8 Albumin 4.1 Preliminary micro results at discharge 05/03/24 10:55 Blood Culture - Preliminary Blood - Venous No growth after 24 hours. 05/03/24 10:54 Blood Culture - Preliminary Blood - Venous No growth after 24 hours. Discharge Plan Discharge Anticipated Discharge Date/Time: 05/05/24 13:05 Patient Disposition: Home, Self-Care Discharge Diagnosis: Hypotension Referrals: Fran Strickland MD [Primary Care Provider] - 1 Week Discharge Medications: Continued trazodone 50 mg tablet 50 mg PO BEDTIME PRN (Reason: Sleep) pravastatin 40 mg tablet 40 mg PO BEDTIME atenolol 25 mg tablet 25 mg PO DAILY clonazepam 2 mg tablet 2 mg PO BEDTIME PRN (Reason: Anxiety) terazosin 10 mg capsule 10 mg PO DAILY multivitamin Tablet 1 tab PO DAILY bupropion HCl 150 mg tablet sustained-release 12 hr 150 mg PO BID PRN (Reason: Nicotine Cravings) aspirin 81 mg Tablet,Delayed Release (Dr/Ec) 81 mg PO DAILY naloxone 4 mg/actuation [place],Non-Aerosol 4 mg INTRANASAL Q3M PRN (Reason: Opioid Overdose) Rx Instructions: spray 1 dose into ONE nostril; alternate nostrils w each dose until help arrives Changed enalapril maleate 20 mg tablet 10 mg PO BEDTIME Qty: 30 0RF Discharge Orders: Discharge Order (Routine); Ordered 05/05/24 Ordered By: Aura Fam Diet: Advance to usual diet Activity on Discharge: As tolerated Stand Alone Forms: Patient Portal Discharge page Print Language: Cam[place]onian Care Plan Goals: Continue home blood pressure medications, enalapril decreased to 10 mg daily Check blood pressures daily and document for primary care provider Health Concerns: Hypotension Plan of Treatment: Follow-up with primary care provider as needed Take all medications as prescribed Assessment: See discharge summary
--- NOTE | 2024-05-05 13:22 | MHC.CM.PN ---
Addendum entered by Margy Mejia RN 05/05/24 13:29: Sister will transport home at 1530. RN aware. Original Note: Patient medically cleared for dc home self care via private transport.
== END 2024-05-05 14:09 | disposition home or self-care (01) | DRG 293 ==
LOC: HO.ED 10:40 → HO.EDOVER 15:38 → HO.ICU 15:50 → HO.S3 05-04 09:58
PROVIDERS: Physician Assistant; Admitting Provider Internal Medicine Pulmonary Disease; Emergency Provider Emergency Medicine Emergency Medical Services; PCP Internal Medicine; Visit Provider Nurse Practitioner Acute Care
DX: R57.9 Shock, unspecified (principal); F17.210 Nicotine dependence, cigarettes, uncomplicated; Z71.6 Tobacco abuse counseling; E78.5 Hyperlipidemia, unspecified; N40.0 Benign prostatic hyperplasia without lower urinary tract symptoms; T46.5X6A Underdosing of other antihypertensive drugs, initial encounter; Z20.822 Contact with and (suspected) exposure to COVID-19; Z79.82 Long term (current) use of aspirin; Z79.899 Other long term (current) drug therapy
CPT/HCPCS: 0241U; 36415; 70450; 71045; 71260; 72125; 74177; 80048; 80053; 80307; 81001; 82040; 82803; 83605; 83690; 83735; 84100; 84443; 84484; 85025; 85652; 86140; 87040; 93005; 99285; J0696; J1644; J3370; J7120; P9047; Q9967

== ENCOUNTER → 2024-05-03 09:42 | Outpatient (BNV) | payer MEDICARE, SELFPAY | PROVIDERS: Admitting Provider Internal Medicine Pulmonary Disease; Emergency Provider Emergency Medicine Emergency Medical Services; PCP Internal Medicine; Visit Provider Internal Medicine Cardiovascular Disease | DX: R94.31 Abnormal electrocardiogram [ECG] [EKG] (principal) | CPT/HCPCS: 93010 ==

== ENCOUNTER → 2024-05-03 10:05 | Outpatient (BNV) | payer MEDICARE, SELFPAY | PROVIDERS: Emergency Provider Emergency Medicine Emergency Medical Services; PCP Internal Medicine; Visit Provider Radiology Diagnostic Radiology | DX: R42 Dizziness and giddiness (principal) | CPT/HCPCS: 70450; 72125 ==

== ENCOUNTER → 2024-05-03 15:32 | Outpatient (BNV) | payer MEDICARE, SELFPAY | PROVIDERS: Admitting Provider Internal Medicine Pulmonary Disease; Emergency Provider Emergency Medicine Emergency Medical Services; PCP Internal Medicine; Visit Provider Internal Medicine Pulmonary Disease | DX: R57.9 Shock, unspecified (principal); R55 Syncope and collapse | CPT/HCPCS: 99232; 99291 ==

== ENCOUNTER → 2024-05-03 15:32 | Outpatient (BNV) | payer MEDICARE, SELFPAY | PROVIDERS: Admitting Provider Internal Medicine Pulmonary Disease; Emergency Provider Emergency Medicine Emergency Medical Services; PCP Internal Medicine; Visit Provider Nurse Practitioner Acute Care | DX: R57.9 Shock, unspecified (principal); R55 Syncope and collapse | CPT/HCPCS: 99239; 99499 ==

== ENCOUNTER 2024-09-04 06:06 | Outpatient (REF) | payer MEDICARE, SELFPAY ==
--- OUTSIDE RECORDS SUMMARY | 2024-09-04 06:09 | XMS_ITS | Data Portability ---
Author Organization [facility] Address [address] [place] [address] Assessment Encounter Date Assessment Date Assessment LastModified by Organization Details LastModified Time 07/13/2022 07/13/2022 [id number] [place] [address] (THIRD COOK) MDM MODERATE MUST MEET 2 OUT OF 3 ELEMENTS: PROBLEMS, DATA OR RISK ELEMENT 1: PROBLEMS ADDRESSED 1 OR MORE CHRONIC ILLNESS WITH EXACERBATION OR 2 OR MORE STABLE CHRONIC ILLNESSES OR 1 UNDIAGNOSED NEW PROBLEM OR 1 ACUTE ILLNESS W/SYMPTOMS OR 1 ACUTE COMPLICATED INJURY ELEMENT 2: DATA MUST MEET 1 OF 3 CATEGORIES CATEGORY 1: REVIEW OF PRIOR EXTERNAL NOTES, REVIEW OF RESULTS, ORDERING OF EACH TEST, ASSESSMENT REQUIRING INDEPENDENT HISTORIAN OR CATEGORY 2: INDEPENDENT INTERPRETATION OF TESTS BY ANOTHER PHYSICIAN OR SPECIALIST OR CATEGORY 3: DISCUSSION OF MGT OR TEST INTERPRETATION W/EXTERNAL PHYSICIAN OR SPECIALIST ELEMENT 3: RISK RISK OF COMPLICATIONS AND/OR MORBIDITY OR MORTALITY OF PATIENT MANAGEMENT PROVIDER MUST THOROUGHLY DOCUMENT EACH ELEMENT THAT IS COVERED Not available 07/13/2022 11:13:47 01/18/2023 01/18/2023 [id number] [place] [id number] (THIRD COOK) : MDM LOW MUST MEET 2 OF 3 ELEMENTS: PROBLEMS, DATA OR RISK ELEMENT 1: PROBLEMS ADDRESSED (LOW): 2 OR MORE SELF-LIMITED OR MINOR PROBLEMS OR 1 STABLE CHRONIC ILLNESS OR 1 ACUTE UNCOMPLICATED ILLNESS OR INJURY ELEMENT 2: DATA TO BE REVISED AND ANALYZED (LOW) MUST MEET 1 OF 2 CATEGORIES: CATEGORY 1. REVIEW OF PRIOR EXTERNAL NOTES/RESULTS, ORDERING OF TEST(S) CATEGORY 2. ASSESSMENT REQUIRING INDEPENDENT HISTORIAN(S) INCLUDE WHO THE HISTORIAN IS AND RELATION TO PT AND WHY PT IS UNABLE TO GIVE COMPLETE HISTORY ELEMENT 3: RISK (LOW) RISK OF COMPLICATIONS AND/OR MORBIDITY OR MORTALITY OF PATIENT MANAGEMENT PROVIDER MUST THOROUGHLY DOCUMENT ALL OF THE ELEMENTS COVERED Not available 01/18/2023 09:34:58 07/12/2023 07/12/2023 [address] [place] [address] (THIRD COOK) : MDM LOW MUST MEET 2 OF 3 ELEMENTS: PROBLEMS, DATA OR RISK ELEMENT 1: PROBLEMS ADDRESSED (LOW): 2 OR MORE SELF-LIMITED OR MINOR PROBLEMS OR 1 STABLE CHRONIC ILLNESS OR 1 ACUTE UNCOMPLICATED ILLNESS OR INJURY ELEMENT 2: DATA TO BE REVISED AND ANALYZED (LOW) MUST MEET 1 OF 2 CATEGORIES: CATEGORY 1. REVIEW OF PRIOR EXTERNAL NOTES/RESULTS, ORDERING OF TEST(S) CATEGORY 2. ASSESSMENT REQUIRING INDEPENDENT HISTORIAN(S) INCLUDE WHO THE HISTORIAN IS AND RELATION TO PT AND WHY PT IS UNABLE TO GIVE COMPLETE HISTORY ELEMENT 3: RISK (LOW) RISK OF COMPLICATIONS AND/OR MORBIDITY OR MORTALITY OF PATIENT MANAGEMENT PROVIDER MUST THOROUGHLY DOCUMENT ALL OF THE ELEMENTS COVERED Not available 07/12/2023 09:16:49 12/01/2023 12/01/2023 [id number] [place] [id number] (THIRD COOK) [facility] MODERATE MUST MEET 2 OUT OF 3 ELEMENTS: PROBLEMS, DATA OR RISK ELEMENT 1: PROBLEMS ADDRESSED 1 OR MORE CHRONIC ILLNESS WITH EXACERBATION OR 2 OR MORE STABLE CHRONIC ILLNESSES OR 1 UNDIAGNOSED NEW PROBLEM OR 1 ACUTE ILLNESS W/SYMPTOMS OR 1 ACUTE COMPLICATED INJURY ELEMENT 2: DATA MUST MEET 1 OF 3 CATEGORIES CATEGORY 1: REVIEW OF PRIOR EXTERNAL NOTES, REVIEW OF RESULTS, ORDERING OF EACH TEST, ASSESSMENT REQUIRING INDEPENDENT HISTORIAN OR CATEGORY 2: INDEPENDENT INTERPRETATION OF TESTS BY ANOTHER PHYSICIAN OR SPECIALIST OR CATEGORY 3: DISCUSSION OF MGT OR TEST INTERPRETATION W/EXTERNAL PHYSICIAN OR SPECIALIST ELEMENT 3: RISK RISK OF COMPLICATIONS AND/OR MORBIDITY OR MORTALITY OF PATIENT MANAGEMENT PROVIDER MUST THOROUGHLY DOCUMENT EACH ELEMENT THAT IS COVERED Not available 12/01/2023 09:40:51 06/28/2024 06/28/2024 [id number] [place] [address] (THIRD COOK) MDM MODERATE MUST MEET 2 OUT OF 3 ELEMENTS: PROBLEMS, DATA OR RISK ELEMENT 1: PROBLEMS ADDRESSED 1 OR MORE CHRONIC ILLNESS WITH EXACERBATION OR 2 OR MORE STABLE CHRONIC ILLNESSES OR 1 UNDIAGNOSED NEW PROBLEM OR 1 ACUTE ILLNESS W/SYMPTOMS OR 1 ACUTE COMPLICATED INJURY ELEMENT 2: DATA MUST MEET 1 OF 3 CATEGORIES CATEGORY 1: REVIEW OF PRIOR EXTERNAL NOTES, REVIEW OF RESULTS, ORDERING OF EACH TEST, ASSESSMENT REQUIRING INDEPENDENT HISTORIAN OR CATEGORY 2: INDEPENDENT INTERPRETATION OF TESTS BY ANOTHER PHYSICIAN OR SPECIALIST OR CATEGORY 3: DISCUSSION OF MGT OR TEST INTERPRETATION W/EXTERNAL PHYSICIAN OR SPECIALIST ELEMENT 3: RISK RISK OF COMPLICATIONS AND/OR MORBIDITY OR MORTALITY OF PATIENT MANAGEMENT PROVIDER MUST THOROUGHLY DOCUMENT EACH ELEMENT THAT IS COVERED Not available 06/28/2024 11:26:24 Plan of Treatment Reminders Order Date Submit Date Provider Last Modified By Organization Details Last Modified Time Details Appointments FOLLOW UP 15 2024 10:00A M DR OVALLE Not available Not available Not available Lab HbA1c (hemoglob in A1c), blood 2022 023 [facility], [address] [place] [address], [id number], 01/02/2023 11:27:00 CMP, serum or plasma 2022 023 [facility], [address] [place] [address], [id number], 07/13/2022 11:25:15 HbA1c (hemoglob in A1c), blood 2022 023 [facility], [address] [place] [address], [id number], 06/27/2023 16:13:50 HbA1c (hemoglob in A1c), blood 2022 023 [facility], [address] [place] [address], [id number], 06/27/2023 16:13:50 Referral None recorded. Procedures None recorded. Surgeries None recorded. Imaging None recorded. Medication Orders clonazepa m 2 mg tablet 2022 023 [id number], [address] [place], [address], 03/10/2023 11:05:07 Patient TargetsNo targets recorded. Patient Instructions Encounter Date Encounter Id Patient Instructions Last Modified By Organization Details Last Modified Time 07/13/2022 [id number] prediabetes: car e instructions Not available 07/13/2022 11:17:49 rhabdomyolysis: care instructions Not available 07/13/2022 11:17:49 high blood pressure: care instructions Not available 07/13/2022 11:17:49 learning about high blood pressure Not available 07/13/2022 11:17:49 06/28/2024 [id number] knee arthritis: care [email or web address] Not available 06/28/2024 11:27:51 Reason for Referral None Reported. Results Created Date Observation Date Name Description Value Unit Range Abnormal Flag Note LastModifiedBy Organization Detail LastModifiedTime 05/03/2005/03/2024 CT, head, w/o contr ast No observ ation record ed. [address] (Medical Records) [address] [place], [address], 06/28/2024 11:19:53 05/03/2005/03/2024 CT, cervi mendez spine , w/o contr ast No observ ation record ed. [address] (Medical Records) [address] [place], [address], 06/28/2024 11:19:53 05/03/2005/03/2024 CT, chest , w/o contr ast No observ ation record ed. [address] (Medical Records) [address] [place], [address], 06/28/2024 11:19:53 05/03/20 24 05/03/2024 CT, chest , w/ contr ast No observ ation record ed. [address] (Medical Records) [address] [place], [address], 06/28/2024 11:19:53 05/03/2005/03/2024 CT, abdom en, w/ contr ast No observ ation record ed. [address] (Medical Records) [address] [place], [address], 06/28/2024 11:19:53 05/03/20 24 05/03/2024 XR, chest , 2 view No observ ation record ed. [facility] (Medical Records) [address] [facility], [place], [address], 06/28/2024 11:19:53 Result Notes None recorded. Problems Name Problem SNOMED Code Status Onset Date Resolution Date Notes Provider Name and Address Organization Details Recorded Time Tobacco dependen ce syndrome 19623076 Active 2017 Not Available [facility] 3 09:10:03 Myoclonu s 84107608 Active 2017 Not Available [facility] 3 09:10:03 [facility] hyper[facility] noé 68476658 Active 2017 Not Available [facility] 3 09:10:03 Panic attack 075822099 Active 2017 Not Available [facility] 3 09:10:03 Anxiety 45141276 Active 2017 Not Available [facility] 3 09:10:03 History of depressi on 202541894 Active 2017 Not Available [facility] 3 09:10:03 Insomnia 726903296 Active 2017 Not Available [facility] 3 09:10:03 Obesity 568745434 Active 2017 Not Available [facility] 3 09:10:03 Allergic rhinitis 23165788 Active 2017 Not Available [facility] 3 09:10:03 Type 2 diabetes mellitus 82942073 Completed 201707/01/2020 Removal Reason: resolved with wgt loss and diet a1c avg 5 Fran Ovalle, [address] [facility], [place], [address], [facility] 0 09:46:43 Divertic ulitis 855150492 Active 2017 Not Available [facility] 3 09:10:03 Cyst of kidney 865528406 Active 2017 Not Available [facility] 3 09:10:03 Rhabdomy olysis 936652373 Active 2019 Not Available [facility] 3 09:10:03 Impaired fasting glycemia 517511356 Active 2020 Not Available [facility] 3 09:10:03 Pain of right knee joint 0044976485 01037 Active 2021 Not Available [facility] 3 09:10:03 Osteoart hritis of knee 163476743 Active 2021 Not Available [facility] 3 09:10:03 History of hepatiti s B 619004689 Completed 202206/08/2023 Removal Reason: inactive : hep ag neg anti c and s pos Fran Ovalle, DO [address] [facility], [place], [address], [facility] 3 22:18:59 Hypotens vi episode 31457961 Active 2023 Fran Ovalle, DO [address] [place], [address], [facility] 4 11:26:34 Problem Notes None recorded. Procedures Surgical History None recorded. Imaging Results Imaging Date Name Status LastModified by Organiz ation Details LastModified Time 05/03/2024 CT, head, w/o contrast completed [address] (Medical Records) [address] [place] [address], [id number], 06/28/2024 11:19:53 05/03/2024 CT, cervical spine, w/o contrast completed [address] (Medical Records) [address] [place] [address], [address], 06/28/2024 11:19:53 05/03/2024 CT, chest, w/o contrast completed [address] (Medical Records) [address] [place] [address], [address], 06/28/2024 11:19:53 05/03/2024 CT, chest, w/ contrast completed [address] (Medical Records) [address] [place] [address], [address], 06/28/2024 11:19:53 05/03/2024 CT, abdomen, w/ contrast completed [address] (Medical Records) [address] [place], [address], 06/28/2024 11:19:53 05/03/2024 XR, chest, 2 view completed [address] (Medical Records) [address] [place], [address], 06/28/2024 11:19:53 Procedure Notes None recorded. Medical Equipment None Reported. Allergies Allergen ID Allergen Name Allergen Category Reaction Reaction Severity Criticality Documentation Date Start Date Code Code System Note Provider Name and Address Organization Details Recorded Time 4054 Product containin g penicilli n (product) medicatio n other severe Not available 03/11/2020 44018 8001 SNOMED kidne y failu re RONNY GEIGER [address] [place], [address], [facility] 0 15:04:52 5584 Augmentin medicatio n dyspnea Not available Not available 09/20/2021 85025 2 [facility] 2 10:59:09 Medications Name Sig Start Date Stop Date Status Note LastModified by Organization Details LastModified Time bupropion HCl SR 150 mg tablet,12 hr sustained-r elease TAKE 1 TABLET BY MOUTH TWICE A DAY active Not Available Not Available No t Available trazodone 50 mg tablet TAKE 1 TABLET BY MOUTH ONCE DAILY active Not Available Not Available No t Available pravastatin 40 mg tablet TAKE 1 TABLET BY MOUTH EVERY DAY active Not Available Not Available No t Available Lidocaine Viscous 2 % mucosal solution 11/24 completed Not Available Not Available Not Available hydrocodone 5 mg-acetamin ophen 325 mg tablet Take 1 tablet every 6 hours by oral route for 7 days. 10/15 completed Not Available Not Available Not Available enalapril maleate 20 mg tablet TAKE 1/2 TABLET BY MOUTH EVERY DAY active Not Available Not Available No t Available Medrol (Derek) 4 mg tablets in a dose pack Take 1 dose pk as needed by oral route. 10/15 completed Not Available Not Available Not Available clonazepam 1 mg tablet TAKE 2 TABLETS BY MOUTH AT BEDTIME 08/29 completed Not Available Not Available Not Available atenolol 25 mg tablet TAKE 1 TABLET BY MOUTH EVERY DAY active Not Available Not Available No t Available metronidazo le 500 mg tablet 03/11 completed Not Available Not Available Not Available ciprofloxac in 500 mg tablet TAKE 1 TABLET BY MOUTH EVERY 12 HOURS FOR 5 DAYS 01/21 completed Not Available Not Available Not Available tramadol 50 mg tablet TAKE 1 TABLET BY MOUTH EVERY 6 HOURS FOR 7 DAYS 09/24 completed Not Available Not Available Not Available amoxicillin 875 mg tablet 11/24 completed Not Available Not Available Not Available metformin 1,000 mg tablet TAKE 1 TABLET BY MOUTH TWICE A DAY 11/13 completed Not Available Not Available Not Available buspirone 10 mg tablet TAKE 1 AND 1/2 TABLETS BY MOUTH TWICE A DAY 11/30 completed Not Available Not Available Not Available olopatadine 0.1 % eye drops INSTILL 1 DROP INTO AFFECTED EYE(S) BY OPHTHALMI C ROUTE 2 TIMES PER DAY AT AN INTERVAL OF 6 TO 8 HOURS 06/19 completed Not Available Not Available Not Available clonazepam 2 mg tablet TAKE 1 TABLET BY MOUTH EVERY DAY AT BEDTIME NEEDED 2024 active Not Available Not Available Not Avai lable alprazolam 2 mg tablet TAKE 1 TABLET BY MOUTH EVERY DAY FOR 30 DAYS 11/30 completed Not Available Not Available Not Available zolpidem 10 mg tablet TAKE 1 TABLET BY MOUTH AT BEDTIME NEEDED 10/15 completed Not Available Not Available Not Available fluticasone propionate 50 mcg/actuati on nasal spray,suspe nsion 11/24 completed Not Available Not Available Not Available terazosin 10 mg capsule TAKE 1 CAPSULE BY MOUTH EVERY DAY active Not Available Not Available No t Available atenolol 50 mg tablet 10/15 completed Not Available Not Available Not Available amoxicillin 875 mg-alexsandra m clavulanate 125 mg tablet Take 1 tablet every 12 hours by oral route for 10 days. 06/19 completed Not Available Not Available Not Available buspirone 15 mg tablet Take 2 tablets twice a day by oral route. 06/19 completed Not Available Not Available Not Available Denta 5000 Plus 1.1 % cream active Not Available Not Available Not Available duloxetine 60 mg capsule,del ayed release TAKE 1 CAPSULE BY MOUTH EVERY DAY active Not Available Not Available No t Available Aspir-81 One tablet daily. active Not Available Not Available No t Available sodium fluoride 1.1 % dental paste USE DIRECTED active Not Available Not Available No t Available naloxone 4 mg/actuatio n nasal spray ADMINISTE R 1 SPRAY INTO ONE NOSTRIL. CALL 911. REPEAT AFTER 2-3 MIN IF NO OR MINIMAL RESPONSE active Not Available Not Available No t Available Shingrix (PF) 50 mcg/0.5 mL intramuscul ar suspension, kit 07/01 completed Not Available Not Available Not Available Fluad Quad (6 5yr up)(PF) 60 mcg (15 mcg x 4)/0.5mL IM syringe 07/01 completed Not Available Not Available Not Available Vitals Date Recorded Body height Body mass index (BMI) Body weight Oxygen saturation Oxygen saturation in Arterial blood by Pulse oximetry Heart rate Systolic blood pressure Diastolic blood pressure Provider Name and Address Organization Details Last Updated DateTime 3 172.72 cm 31.9 kg/m2 34143.0 4 g 99 % 99 % 89 /min 108 mm[Hg] 68 mm[Hg] Felicita Hagan [facility] 3 10:35:37 Date Recorded Body height Body mass index (BMI) Body weight Heart rate Oxygen saturation Oxygen saturation in Arterial blood by Pulse oximetry Systolic blood pressure Diastolic blood pressure Provider Name and Address Organization Details Last Updated DateTime 3 172.72 cm 28.7 kg/m2 51172.6 g 75 /min 96 % 96 % 110 mm[Hg] 68 mm[Hg] Fran Ovalle, DO [address] [place], [address] , [facility] 3 09:22:03 Date Recorded Body height Body mass index (BMI) Body weight Heart rate Respiratory rate Oxygen saturation Oxygen saturation in Arterial blood by Pulse oximetry Systolic blood pressure Diastolic blood pressure Provider Name and Address Organization Details Last Updated DateTime 4 171.45 cm 30.4 kg/m2 00582.7 g 65 /min 16 /min 96 % 96 % 122 mm[Hg] 66 mm[Hg] Ankush Shearer [facility] 4 09:08:39 Date Recorded Body height Body mass index (BMI) Body weight Heart rate Oxygen saturation Oxygen saturation in Arterial blood by Pulse oximetry Systolic blood pressure Diastolic blood pressure Provider Name and Address Organization Details Last Updated DateTime 4 170.18 cm 28.3 kg/m2 40693.2 2 g 70 /min 99 % 99 % 124 mm[Hg] 70 mm[Hg] Ankush Shearer [facility] 4 10:38:18 Social History Question Answer Notes LastModified by Organizat ion Details LastModified Time Tobacco Smoking Status Current Some Day Smoker 2 cigs per day Ankush gann [facility] 12/01/2023 09:12:22 What Was The Date Of Your Most Recent Tobacco Screening? 06/28/2024 [email or web address] Information not available 06/28/2024 How Many Years Have You Smoked Tobacco? 15 [id number] Information not available 05/12/2020 Do You Or Have You Ever Used Any Other Forms Of Tobacco Or Nicotine? No [email or web address] Information not available 01/21/2022 Sex: Unknown Functional Status None recorded. Mental Status None recorded. Family History Relationship Description Onset Age of this Age Resolved Age Notes LastModified by Organization Details LastModified Time Mother Diabetes mellitus 70 [email or web address] Not available 2019 09:01:47 Mother Alzheimer's disease 88 96 [email or web address] Not available 2019 09:01:47 Mother Disorder of thyroid gland 45 [email or web address] Not available 2019 09:01:47 Mother Arthritis 45 [email or web address] Not available 12/13/2019 09:01:47 Medical History Condition Response Coronary Artery Disease N Other N Gout N Kidney Stones N Blood Diseases N Breast Cancer N Blood Transfusion N COPD N Depression N Lung Disease N Defects or Inherited Disease N Anxiety Disorder N Muscle, Joint, or Bone Problems N Obesity N Vision or Eye Problems N Arthritis N Infertility N Polyps N Mental Disorder N Cancer N Stroke N Varicosities N Endometriosis N Bladder or Kidney Problems N High Cholesterol N Liver Disease N Fibromyalgia N Headaches N Kidney Disease N Allergies/Hayfever N Heart Problems N Hospitalizations N Thyroid Problems N GI Problems N Skin Problems N Eating Disorder N Anemia N MRSA exposure N Constipation N Mental Illness N Ovarian Cancer N Diabetes N Seizures/Epilepsy N Tuberculosis N Congestive Heart Failure (CHF) N Eczema N Diverticulitis N Abuse/Domestic Violence N Asthma N Reflux/GERD N Hepatitis N Heart Disease N Pulmonary Embolism N Hypertension N Osteoporosis N Chicken Pox N Autism Spectrum Disorder (ASD) N Immunizations Vaccine Type Date Status Note Provider Nam e and Address Organization Details Recorded Time Influenza, split virus, quadrivalent, preservative 03/19/20 21 completed Supriya gann [facility] 03/22/2021 11:37:12 COVID-19, mRNA, LNP-S, PF, 100 mcg/0.5mL dose or 50 mcg/0.25mL dose 04/30/20 21 completed Fran Ovalle DO [address] [place] [address], [address], [facility] 05/02/2021 09:23:55 pneumococcal polysaccharide PPV23 05/03/20 [facility] 08:11:03 COVID-19, mRNA, LNP-S, PF, 100 mcg/0.5mL dose or 50 mcg/0.25mL dose 10/07/19 22 completed Supriya gann [facility] 10/08/2021 08:19:08 Influenza, split virus, quadrivalent, preservative 03/02/20 22 completed Fran Ovalle DO [address] [place] [address], [phone], [facility] 03/03/2022 08:46:03 Influenza, split virus, quadrivalent, preservative 03/02/20 [facility] 03/04/2022 08:36:46 COVID-19, mRNA, LNP-S, PF, 100 mcg/0.5mL dose or 50 mcg/0.25mL dose 03/21/20 [facility] 03/22/2022 09:11:03 Pneumococcal conjugate PCV20, polysaccharide [id number] conjugate, adjuvant, PF 06/15/20 23 completed Fran Ovalle DO [address] [place] [address], [phone], [facility] 06/17/2023 09:12:24 Pneumococcal conjugate PCV20, polysaccharide [id number] conjugate, adjuvant, PF 06/15/20 23 completed Fran Ovalle DO [address] [place] [address], [phone], [facility] 06/17/2023 13:06:03 SARS-COV-2 (COVID-19) vaccine, UNSPECIFIED 09/16/19 24 [facility]/18/2023 08:42:03 Influenza, split virus, quadrivalent, preservative 03/30/20 20 [facility] 04/03/2020 08:04:37 Pneumococcal conjugate PCV 13 04/24/20 20 completed Fran Ovalle DO [address] [place] [address], [address], [facility] 04/26/2020 15:18:42 Tdap 04/24/20 20 completed Fran Ovalle DO [address] [place] [address], [phone], [facility] 04/26/2020 15:18:54 zoster recombinant 06/09/20 20 [facility]/10/2020 15:54:34 zoster recombinant 04/01/20 20 [facility] 07/01/2020 09:22:41 COVID-19, mRNA, LNP-S, PF, 100 mcg/0.5mL dose or 50 mcg/0.25mL dose 09/25/19 21 completed Fran Ovalle DO [address] [place] [address], [phone], [facility] 09/27/2020 08:09:09 COVID-19, mRNA, LNP-S, PF, 100 mcg/0.5mL dose or 50 mcg/0.25mL dose 10/24/19 21 completed Fran Ovalle DO [address] [place] [address], [phone], [facility] 10/26/2020 08:23:32 Past Encounters Encounter ID Performer Location Encounter Start Date Encounter Closed Date Diagnosis/Indication Diagnosis SNOMED-CT Code Diagnosis ICD10 Code Diagnosis Note [id number] Fran BarbozaSemaj [facility] [address] [facility],[place] [address] 11/24/2017 10:33:14 11/24/2017 11:31:24 Type 2 diabetes mellitus 96603400 E11.9 a1c is 5.7 doing great Essential hypertension 74106108 I10 excellent and no issues no dizzines Allergic rhinitis 673309 04 J30.9 try otc patanol for eyes Generalize d anxiety disorder 99818585 F41.1 [id number] Fran BarbozaSemaj [facility] [address] [facility], [place] [address] 02/20/2018 10:35:40 02/23/2018 08:44:26 Essential hypertension 58575757 I10 excellent and no issues no dizzines Tobacco de pendence syndrome 14615637 F17.200 wishes to try wellbutrin will order next visit in 2 weeks Type 2 yosvany betes mellitus 10717086 E11.9 needs lab for f/u visit in 2 weeks Cervical radiculopathy 14660716 M54.12 will begin w/u and order spine xray as well as dose pk and a f/u vist will prob need MRI given radiculopa thy signs and hx of known cerv disc disease [id number] Fran [facility] [address] [facility],[place] [address] 03/09/2018 09:00:21 03/09/2018 12:16:54 Type 2 diabetes mellitus 71538188 E11.9 a1c is 6,.0 and is doing well Essential hypertension 05185065 I10 excellent but having lightheade dness in the am and upon arising fro seated position occurs with lying down too so could be vertigo positional will lower dose of atenolol to 25 mg and see what happens Tobacco de pendence syndrome 74379490 F17.200 wishes to try wellbutrin will start now Panic attack 454496109 F 41.0 renew the klonopin Myoclonus 42524543 G25.3 using clonazepam for years with good results [id number] Fran [facility]le [facility] [address] [facility],[place] [facility] [place] [address] 06/18/2018 11:21:02 06/18/2018 16:12:11 Type 2 diabetes mellitus 43775079 E11.9 a1c is 5.8 and is doing well and there are no new issues vision is good good eye exam hearing is good bowels are ok bladder ok Essential hypertension 35885057 I10 excellent but having lightheade dness in the am and upon arising fro seated position occurs with lying down too so could be vertigo positional so we lowered the dose of atenolol to 25 mg and symptoms are gone and bp is still excellent Obesity 586579538 E66.9 Tobacco de pendence syndrome 94858108 F17.200 tried wellbutrin and is down to 4 cigg a day and is doin g quite well disvcussio n re this [id number] Fran Ovalle [facility] [address] [facility],[place] [employer], [place] [address] 10/15/2018 10:01:35 10/15/2018 11:05:38 Type 2 diabetes mellitus 25117709 E11.9 a1c is 5.8 and is doing well and there are no new issues vision is good good eye exam hearing is good bowels are ok bladder ok Essential hypertension 65161031 I10 excellent but having lightheade dness in the am and upon arising fro seated position occurs with lying down too so could be vertigo positional so we lowered the dose of atenolol to 25 mg and symptoms are gone and bp is still excellent Diverticulitis 466680378 K57.92 will use augmentin [id number] [facility] [address] [facility],[place] [address] 02/13/2019 08:53:49 02/13/2019 09:17:55 Hepatitis C screening 957970191 Z11.59 Essential hypertension 50943378 I10 excellent but having lightheade dness in the am and upon arising fro seated position occurs with lying down too so could be vertigo positional so we lowered the dose of atenolol to 25 mg and symptoms are gone and bp is still excellent Type 2 yosvany betes mellitus 31243009 E11.9 a1c is 5.7 and is doing well and there are no new issues vision is good good eye exam hearing [place] [id number] [facility] [address] [facility],[place] [address] 06/19/2019 09:04:09 06/19/2019 09:34:28 Type 2 diabetes mellitus 95712311 E11.9 a1c is 5.6 and is doing well and there are no new issues vision is good good eye exam hearing is good bowels are ok bladder ok Essential hypertension 43234628 I10 excellent but having lightheade dness in the am and upon arising fro seated position occurs with lying down too so could be vertigo positional so we lowered the dose of atenolol to 25 mg and symptoms are gone and bp is still excellent [id number] [facility] [address] [facility], [place] [address] 12/13/2019 08:59:25 12/13/2019 10:12:30 Type 2 diabetes mellitus 94031185 E11.9 a1c is 6.0 and is doing well and there are no new issues vision is good good eye exam eyelashes are still a prob on occ hearing is good bowels are ok bladder ok Essential hypertension 60123438 I10 excellent but having lightheade dness in the am and upon arising fro seated position occurs with lying down too so could be vertigo positional so we lowered the dose of atenolol to 25 mg and symptoms are gone and bp is still excellent Anxiety 30249504 F41.9 stable Hypercholesterolemia 136 72296 E78.00 [id number] RONNY GEIGER [facility] [address] [facility],[place] [address] 03/11/2020 08:17:55 03/11/2020 16:27:05 Rhabdomyolysis 572529294 M62.82 resolved Acute kidney injury 1466 9001 N17.9 resolved Syncope 630524081 R55 resolved Diverticulitis 478305744 K57.92 resolved [id number] [facility] [address] [facility],[place] [address] 03/30/2020 09:50:28 03/30/2020 11:13:32 Adult health examination 246557404 Z00.00 Screening for cardiovascular system disease 843966987 Z13.6 reviewed cholest results LDL 95 Screening for malignant neoplasm of colon 213367103 Z12.11 colonoscop y not needed has neg occult stool Type 2 yosvany betes mellitus 89436689 E11.9 a1c is 5.6 and is doing well and there are no new issues vision is good exam is normal good eye exam eyelashes are still a prob on occ hearing is good bowels are ok bladder ok will try off the metformin rechk a1c before xmas Rhabdomyolysis 584667838 M62.82 will rechk lab nexxt draw but looks completely resolved [id number] Fran Ovalle DO [facility] [address] [facility],[place] [address] 07/01/2020 09:16:39 07/01/2020 10:02:18 Type 2 diabetes mellitus 97366387 E11.9 a1c is 5.5 and is doing well and there are no new issues vision is good exam is normal good eye exam eyelashes are still a prob on occ has done great off the metformin! ! hearing is good i believe he no longer has a true case of DM and he has eliminated the dx and we put him in the inactive status which is wonderful Anxiety 92467501 F41.9 stable Essential hypertension 73960851 I10 excellent but having lightheade dness in the am and upon arising fro seated position occurs with lying down too so could be vertigo positional so we lowered the dose of atenolol to 25 mg and symptoms are gone and bp is still excellent [id number] RONNY GEIGER [facility] [address] [facility],[place] [address] 11/13/2020 08:49:59 11/13/2020 09:24:40 Essential hypertension 96063337 I10 BP excellent today doing well on his medication Anxiety 01150428 F41.9 stable Tobacco de pendence syndrome 79389842 F17.200 tried wellbutrin and is down to 2 cigg a day and is doing quite well [id number] Fran Ovalle DO [facility] [address] [facility],[place] [address] 02/24/2021 08:51:44 02/24/2021 09:21:54 Essential hypertension 04319283 I10 BP excellent today doing well on his medication History of depression 16 8473605 Z86.59 doing well Type 2 yosvany betes mellitus 05991873 E11.9 NO LONGER AN ACTIVE DIAGNOSIS IS REMOVED FROM LIST NO NEED FOR Q 3MONTH A1C OR FOOT CHECKS ETC a1c is 5.9 AND PRIOR WAS 5.5 and is doing well and there are no new issues vision is good exam is normal good eye exam eyelashes are still a prob on occ has done great off the metformin! ! hearing is good i believe he no longer has a true case of DM and he has eliminated the dx and we put him in the inactive status which is wonderful DM dx is taken off of list of active illnesses now just impaired fast gluc Impaired f asting glycemia 045430902 R73.01 rechk a1c in 6 mo [id number] RONNY GEIGER [facility] [address] [facility],[address] [place] [facility] [place] [address] 09/20/2021 10:33:50 09/21/2021 11:10:10 Type 2 diabetes mellitus 87606826 E11.9 stable Acute thor acic back pain 885888867 M54.6 ?MSK pain but not reproducib le today in office with exam Diverticulitis 508204703 K57.32 treat for possible diverticul itis Left flank pain 14713260 9 R10.0 ?kidney infection vs diverticul itisif start on cipro will treat both possible MSK pain from thoracic region but no pain reproduced today in office with palpation, bending, twisting or extension [id number] Fran Ovalle DO [facility] [address] [facility],[place] [address] 09/24/2021 09:43:09 09/24/2021 12:19:52 Impaired fasting glycemia 718601784 R73.01 rechk a1c in 6 mo Essential hypertension 40801582 I10 BP excellent today doing well on his medication Tobacco de pendence syndrome 50416660 F17.200 tried wellbutrin and is down to 2 cigg a day and is doing quite well Dysplastic nevus of skin 471784383 D22.9 dermatolog ist will be removing next week from left forearm [id number] [facility] [address] [facility] [address],[place] [address] 01/21/2022 08:57:16 01/21/2022 10:54:01 Impaired fasting glycemia 568989634 R73.01 rechk a1c in 6 mo 5.8 Tobacco de pendence syndrome 84801782 F17.200 tried wellbutrin and is down to 2 cigg a day and is doing quite well Essential hypertension 12357732 I10 BP excellent today doing well on his medication Advance care planning 71 5868752 Z71.89 done [id number] [facility] [address] [facility] [address],[place] [address] 07/13/2022 10:27:24 07/13/2022 11:39:38 Essential hypertension 83792998 I10 BP excellent today doing well on his medication Impaired f asting glycemia 063594658 R73.01 rechk a1c in 6 mo 5.6 this time5.8 last time Rhabdomyolysis 609763259 M62.82 lab findings have been stable for most part and with excellent bp and no DM we expect this to remain stable but we will follow as necess [id number] [facility] [address] [facility],[place] [address] 01/18/2023 09:16:59 01/18/2023 09:43:45 Impaired fasting glycemia 990680667 R73.01 a1c is now 5.4chk a1c in 6 mo was5.65.8 last time Essential hypertension 28008298 I10 BP excellent today doing well on his medication Advance care planning 71 5000430 Z71.89 done Screening for malignant neoplasm of colon 392624254 Z12.11 colonoscop y not needed has neg occult stool Anxiety 36283315 F41.9 stable [id number] [facility] [address] [facility] [address],[place] [address] 07/12/2023 07:50:01 07/12/2023 13:41:16 Impaired fasting glycemia 216348601 R73.01 a1c is now 5.7chk a1c in 6 mo was5.65.8 last time Essential hypertension 35265815 I10 BP excellent today doing well on his medication [id number] Fran Ovalle DO [facility] [address] [facility],[place] [address] 12/01/2023 08:53:25 12/01/2023 11:08:02 Depression screening 003566222 Z13.31 neg Essential hypertension 46166497 I10 BP excellent today doing well on his medication Osteoarthr itis of knee 642046771 M17.11 is doing a lot of walking no major issues pain has resolved [id number] Fran Ovalle DO [facility] [address] [facility] [address],[place] [place] [employer] [place] [address] 06/28/2024 10:27:50 06/28/2024 11:37:12 Osteoarthritis of knee 222504256 M17.11 is doing a lot of walking no major issues pain has resolved Hypotensive episode 6776 3001 I95.9 now stable believe this is secondary to a reaction of his meds Anxiety 87033159 F41.9 stable cont current Health Concerns Section Related Observation LastModified by Organization Detai ls LastModified Time None Recorded Concern Status LastModified by Organization Details LastModified Time None Recorded Advance Directives Directive None Recorded Payers Encounter Date Sequence Insurance Name Policy Number Policy Norris Covered Member ID Norris Member ID Guarantor Name 07/13/2022 1 [facility] (MEDICARE REPLACEMENT/A DVANTAGE - PPO) [id number] Asher David [id number] Asher David 01/18/2023 1 [facility] (MEDICARE REPLACEMENT/A DVANTAGE - PPO) [id number] Asher David [id number] Asher David 07/12/2023 1 [facility] (MEDICARE REPLACEMENT/A DVANTAGE - PPO) [id number] Asher David [id number] Asher David 12/01/2023 1 [facility] (MEDICARE REPLACEMENT/A DVANTAGE - PPO) [id number] Asher David [id number] Asher David 06/28/2024 1 [facility] (MEDICARE REPLACEMENT/A DVANTAGE - PPO) [id number] Asher David [id number] Asher David Notes Date Note Type Note Provider Name and Address Organization Details Recorded Time 07/13/19 23 text/htm l here for rechk feeling well \mood is fairno cp no sobappetite is goodrelates that right knee occ bothers but not bad enoughno bowel issue Fran Law Em, DO [address] [place], [address], [facility] 07/13/2022 11:19:44 01/19/20 23 text/htm l The patient denies recent falls or recurrent falls. Denies instability, weakness, abnormal gait, or difficulties with movement. The patient wears correct, supportive shoes and is not otherwise severely visually impaired. The patient is full weight bearing and if using the assistance of a cane or walker feels supported and stable with the use of such devices. All medical conditions have been taken into account that may pose a risk for the patient for falls. Home chyna, carpets and/or rugs do not pose a challenge for the patient. The patient has been educated about the use of vitamin D supplementation for bone health and prevention of hypotensive episodes that may increase risk for fall. All question and concerns were answered to the patient's satisfaction. he is feeling wellno cp no sobrelates his eating less than in the paststates after a gastroenteritis lost 10lbs and has stayed there Fran Ovalle DO [address] [place], [address], [facility] 01/18/2023 09:37:39 07/12/19 24 text/htm l here for repatient is evaluated via tele/video assessment per patient consentduring current pandemic Fran Ovalle DO [address] [place] [address], [address], [facility] 07/12/2023 09:17:07 12/01/19 24 text/htm l doing well and feel sgood pollen is a problemno cp no sobno bowel probbladder okappetite goodsleep is fairdoes have some bunions Fran Ovalle DO [address] [place], [address], [facility] 12/01/2023 09:44:03 06/28/20 24 text/htm l here since hospitalizationrelates not sure why his bp had dropped like it didcurrently is feeling good now eating oksleep is fair;note in hosp had a pos bld for amphetamines which he denies and point s out correct that the combo of dulox and bupropion have caused pos amphet test Fran Ovalle, DO [address] [facility], [place], [address], [facility] 06/28/2024 11:29:25
--- OUTSIDE RECORDS SUMMARY | 2024-09-04 06:09 | XMS_ITS | Clinical Summary ---
Author Organization [facility] ity Address [address] [place] [address] Care Team Providers Care Network Designer Name Role Phone Unavailable Primary Care Provider Unavailabl e Social History Tobacco Use Types Packs/Day Years Used Date Smoking Tobacco: Never Assessed Sex and Gender Information Value Date Recorded Sex Assigned at Not on file Legal Sex Male 9:53 PM EST Gender Identity Not on file Sexual Orientation Not on file Plan of Treatment Health Maintenance Due Date Last Done Comments DTaP,Tdap,and Td Vaccines (1 - Tdap) 1969 Pneumococcal Vaccine: 50+ Ye ars (1 of 1 - PCV) 2000 Zoster Vaccines (1 of 2) 2000 COVID-19 Vaccine (1 - 2023-2 5 season) 2024 Influenza Vaccine (#1) 2024 RSV Immunization Patients 60 + Years Old (1 - 1-dose 75+ series) 2025 HIB Vaccines Aged Out No longer eligi ble based on patient's age to complete this topic HPV Vaccines Aged Out No longer eligi ble based on patient's age to complete this topic Hepatitis A Vaccines Aged Out No long er eligible based on patient's age to complete this topic Hepatitis B Vaccines Aged Out No long er eligible based on patient's age to complete this topic IPV Vaccines Aged Out No longer eligi ble based on patient's age to complete this topic MMR Vaccines Aged Out No longer eligi ble based on patient's age to complete this topic Meningococcal ACWY Vaccine Aged Out N o longer eligible based on patient's age to complete this topic Meningococcal B Vacine Aged Out No lo nger eligible based on patient's age to complete this topic RSV Immunization Patients Un alex 20 months Aged Out No longer eligible b ased on patient's age to complete this topic Varicella Vaccines Aged Out No longer eligible based on patient's age to complete this topic
[2024-09-04 07:30] LABS: Estimated Average Glucose 120 mg/dL; Hemoglobin A1c % 5.8 % (<6.0); Total Hemoglobin (HGBA1C) 4130.3066 umol/L
[2024-09-04 07:54] LABS: Alanine Aminotransferase 77 U/L (0-40); Albumin Level 3.8 g/dL (3.5-5.0); Alkaline Phosphatase 78 U/L (39-117); Anion Gap 12 (12-20); Aspartate Amino Transferase 40 U/L (5-37); Bilirubin Total 0.4 mg/dL (0.0-1.0); Blood Urea Nitrogen 12 mg/dL (9-16); Calcium 9.1 mg/dL (8.4-10.2); Carbon Dioxide 28 mmol/L (22-29); Chloride 104 mmol/L (96-108); Cholesterol 150 mg/dL (<200); Estimated Glomerular Filt Rate > 60; Glucose Random 114 mg/dL (60-115); HDL Cholesterol 64 mg/dL (>40); LDL Cholesterol Calculated 71 mg/dL (<100); Potassium 4.6 mmol/L (3.3-5.1); Sodium 139 mmol/L (135-145); Total Protein 6.7 g/dL (6.5-8.0); Triglycerides 75 mg/dL (<150)
[2024-09-04 08:02] LABS: Creatinine Urine 121.67 mg/dL; Microalbum/Creatinine Ratio Ur 6.5 ug/mg cr (<30)
== END 2024-09-04 06:07 | disposition home or self-care (01) ==
LOC: HO.LAB 06:06
PROVIDERS: PCP Internal Medicine; Visit Provider Internal Medicine
DX: R73.01 Impaired fasting glucose (principal)
CPT/HCPCS: 36415; 80053; 80061; 82043; 82570; 83036

== ENCOUNTER 2025-01-14 10:05 | Outpatient (REF) | payer MEDICARE, SELFPAY ==
[2025-01-14 10:24] LABS: MANUAL DIFF FLAG NO
--- OUTSIDE RECORDS SUMMARY | 2025-01-14 10:50 | XMS_ITS | Clinical Summary ---
Author Organization [facility] ity Address [address] [place] [address] Care Team Providers Care Driver Merchandiser Name Role Phone Unavailable Primary Care Provider [...] 2023-2 5 season) 2024 Influenza Vaccine (#1) 2025 RSV Immunization Adult Patie nts (1 - 1-dose 75+ series) 2025 HIB [...] age to complete this topic Meningococcal B Vaccine Aged Out No l onger eligible based on patient's age to complete this topic RSV Immunization Patients Un alex 20 months Aged Out No longer eligible b ased on patient's age to complete this topic Varicella Vaccines Aged Out No longer eligible based on patient's age to complete this topic
--- OUTSIDE RECORDS SUMMARY | 2025-01-14 10:50 | XMS_ITS | Data Portability ---
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) : [facility] LOW MUST MEET 2 OF 3 ELEMENTS: [...] COVERED Not available 07/12/2023 09:16:49 12/01/2023 12/01/2023 [address] [place] [address] (NICKING MACHINE OPERATOR) [facility] MODERATE MUST MEET 2 OUT OF 3 [...] COVERED Not available 12/01/2023 09:40:51 06/28/2024 06/28/2024 [address]00 [place] [address] (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 MACHINE 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) [facility] MODERATE MUST MEET 2 OUT OF 3 [...] THAT IS COVERED Not available 06/28/2024 11:26:24 09/11/2024 09/11/2024 [address] [place] [address] (NICKING MACHINE OPERATOR) MDM HIGH MUST MEET 2 OUT OF 3 ELEMENTS: PROBLEMS, DATA OR RISK ELEMENT 1: PROBLEMS 1 OR MORE CHRONIC ILLNESS W/SEVERE EXACERBATION, PROGRESSION MAY REQUIRE HOSPITAL LEVEL CARE OR 1 ACUTE OR CHRONIC ILLNESS OR INJURY THAT POSES A THREAT TO LIFE OR BODILY FUNCTION ELEMENT 2: DATA: MUST MEET 2 OF 3 CATEGORIES CATEGORY 1 REVIEW OF PRIOR EXTERNAL NOTES REVIEW OF THE RESULTS ORDERING OF EACH TEST ASSESSMENT REQUIRING INDEPENDENT HISTORIAN(S) CATEGORY 2: INDEPENDENT INTERPRETATION OF TESTS BY ANOTHER PROVIDER/SPECIALI ST CATEGORY 3: DISCUSSION OF MGT OR TEST INTERPRETATION W/EXTERNAL PHYSICIAN/SPECIAL IST ELEMENT 3: RISK HIGH RISK OF MORBIDITY FROM ADDITIONAL DIAGNOSTIC TESTING OR TREATMENT PROVIDER MUST THOROUGHLY DOCUMENT EACH ELEMENT THAT IS COVERED The patient presented to their appointment today for multiple concerns requiring moderate to high-level decision making and took over 40-45 minutes for an adequate and appropriate history, exam, assessment and treatment plan. This appointment was done with an established patient. Not available 09/11/2024 10:23:11 Plan of Treatment Reminders Order Date Submit Date Provider Last Modified By Organization Details Last Modified Time Details Appointments FOLLOW UP 15 2024 09:30A M DR OVALLE Not available Not available Not available Lab None recorded. Referral None recorded. Procedures None recorded. Surgeries None recorded. Imaging None recorded. Medication Orders duloxetin e 30 mg capsule,d elayed release 2024 025 [id number], [address] [place] [address], [id number], 10/05/2024 08:05:34 clonazepa m 2 mg tablet 2022 023 [email or web address] [id number], [address] [place] [address], [id number], 03/10/2023 11:05:07 Patient TargetsNo targets recorded. Patient Instructions Encounter Date Encounter Id Patient Instructions Last Modified By Organization Details Last Modified Time 06/28/2024 [id number] knee arthritis: care instructions Not available 06/28/2024 11:27:51 09/11/2024 [id number] deciding about using medicines to quit smoking Not available 09/11/2024 10:25:31 Quitting Tobacco : Care Instructions Not available 09/11/2024 10:25:31 insomnia: care instructions Not available 09/11/2024 10:25:31 Reason for Referral None Reported. Results Created Date Observation Date Name Description Value Unit Range Abnormal Flag Note LastModifiedBy Organization Detail LastModifiedTime 05/03/20 24 05/03/2024 CT, head, w/o contr ast No observ ation record ed. [facility] (Medical Records) [address] [place], [place] [address] [place], [address], 06/28/2024 11:19:53 05/03/20 24 05/03/2024 CT, cervi mendez spine , w/o contr ast No observ ation record ed. [address] (Medical Records) [address] [facility] [place], [address], 06/28/2024 11:19:53 05/03/20 24 05/03/2024 CT, chest , w/o contr ast No observ ation record ed. [address] (Medical Records) [address] [place], [address], 06/28/2024 11:19:53 05/03/20 24 05/03/2024 CT, chest , w/ contr ast No observ ation record ed. [address] (Medical Records) [address] [place], [address], 06/28/2024 11:19:53 05/03/2005/03/2024 CT, abdom en, w/ contr ast No observ ation record ed. [address] (Medical Records) [address] [place], [address], 06/28/2024 11:19:53 05/03/20 24 05/03/2024 XR, chest , 2 view No observ ation record ed. [address] (Medical Records) [address] [place], [address], 06/28/2024 11:19:53 Result Notes None recorded. Problems Name Problem SNOMED Code Status Onset Date Resolution Date Notes Provider Name and Address Organization Details Recorded Time Tobacco dependen ce syndrome 85393347 Active 2017 Not Available [facility] 3 09:10:03 Myoclonu s 65358824 Active 2017 Not Available [facility] 3 09:10:03 [facility] hyperten noé 04967494 Active 2017 Not Available [facility] 3 09:10:03 Panic attack 391736595 Active 2017 Not Available [facility] 3 09:10:03 Anxiety 75853305 Active 2017 Not Available [facility] 3 09:10:03 History of depressi on 752645606 Active 2017 Not Available [facility] 3 09:10:03 Insomnia 776224417 Active 2017 Not Available [facility] 3 09:10:03 Obesity 542854391 Active 2017 Not Available [facility] 3 09:10:03 Allergic rhinitis 44610181 Active 2017 Not Available [facility] 3 09:10:03 Type 2 diabetes mellitus 95900835 Completed 201707/01/2020 Removal Reason: resolved with wgt loss and diet a1c avg 5 Fran Ovalle DO [address] [place] [address], [address], [facility] 0 09:46:43 Divertic ulitis 128891043 Completed 201709/11/2024 Fran Ovalle DO [address] [place] [address], [address], [facility] 5 10:15:37 Cyst of kidney 808349115 Active 2017 Not Available [facility] 3 09:10:03 Rhabdomy olysis 041465816 Active 2019 Not Available [facility] 3 09:10:03 Impaired fasting glycemia 848626973 Completed 202009/11/2024 Fran Ovalle DO [address] [place] [address], [address], [facility] 5 15:44:46 Pain of right knee joint 0547662586 45182 Active 2021 Not Available [facility] 3 09:10:03 Osteoart hritis of knee 735808891 Active 2021 Not Available [facility] 3 09:10:03 History of hepatiti s B 412961917 Completed 202206/08/2023 Removal Reason: inactive : hep ag neg anti c and s pos Fran Ovalle, DO [address] [place], [address], [facility] 3 22:18:59 Hypotens vi episode 90429614 Active 2023 Fran Ovalle, DO [address] [place], [address], [facility] 4 11:26:34 Impaired fasting glycemia 145045516 Completed 202401/08/2025 Fran Ovalle, DO [address] [place] [address], [address], [facility] 5 15:44:46 Problem Notes None recorded. Medical Equipment None Reported. Allergies Allergen ID Allergen Name Allergen Category Reaction Reaction Severity Criticality Documentation Date Start Date Code Code System Note Provider Name and Address Organization Details Recorded Time 4054 Product containin g penicilli n (product) medicatio n other severe Not available 03/11/2020 75042 8001 SNOMED kidne y failu RONNY Palmer [address] [place], [address], [facility] Internal [facility] 0 15:04:52 5584 Augmentin medicatio n dyspnea Not available Not available 09/20/2021 52992 2 RxNorm [facility] 2 10:59:09 Medications Name Sig Start Date [...] TAKE 1 TABLET BY MOUTH EVERY DAY 2024 active Not Available Not Available Not Avai lable metronidazo le 500 mg tablet 03/11 completed [...] Available Not Available Not Available amoxicillin 875 mg-potdonnelliu m clavulanate 125 mg tablet Take 1 tablet every 12 hours by oral route for 10 days. 06/19 completed Not Available Not Available Not Available buspirone 15 mg tablet Take 2 tablets twice a day by oral route. 06/19 completed Not Available Not Available Not Available Denta 5000 Plus 1.1 % cream active Not Available Not Available Not Available duloxetine 30 mg capsule,del ayed release TAKE 1 CAPSULE BY MOUTH EVERY DAY 2024 active Not Available Not Available Not Avai lable duloxetine 60 mg capsule,del ayed release TAKE 1 CAPSULE BY MOUTH EVERY DAY 09/11 completed Not Available Not Available Not Available Aspir-81 One tablet daily. active Not [...] in Arterial blood by Pulse oximetry Systolic And Diastolic Provider Name and Address Organization Details Last Updated DateTime 5 170.18 cm 28.5 kg/m2 33844.7 3 g 74 /min 99 % 99 % 122/78 mm[Hg] [facility] 5 10:00:50 Date Recorded Body height Body mass index (BMI) Body weight Heart rate Respiratory rate Oxygen saturation Oxygen saturation in Arterial blood by Pulse oximetry Systolic And Diastolic Provider Name and Address Organization Details Last Updated DateTime 4 171.45 cm 30.4 kg/m2 06368.7 g 65 /min 16 /min 96 % 96 % 122/66 mm[Hg] Ankush Shearer [facility] 4 09:08:39 Date Recorded Body height Body mass index (BMI) Body weight Heart rate Oxygen saturation Oxygen saturation in Arterial blood by Pulse oximetry Systolic And Diastolic Provider Name and Address Organization Details Last Updated DateTime 3 172.72 cm 28.7 kg/m2 50866.6 g 75 /min 96 % 96 % 110/68 mm[Hg] Fran Ovalle, DO [address] [place], [address], [facility] 3 09:22:03 Date Recorded Body height Body mass index (BMI) Body weight Heart rate Oxygen saturation Oxygen saturation in Arterial blood by Pulse oximetry Systolic And Diastolic Provider Name and Address Organization Details Last Updated DateTime 4 170.18 cm 28.3 kg/m2 66766.2 2 g 70 /min 99 % 99 % 124/70 mm[Hg] Ankush Shearer [facility] 4 10:38:18 Social History Question Answer Notes LastModified by Organizat ion Details LastModified Time Tobacco Smoking Status Current Some Day Smoker 2 cigs per day [facility] 12/01/2023 09:12:22 What Was The Date Of Your Most Recent Tobacco Screening? 09/11/2024 [email or web address] Information not available 09/11/2024 How Many Years Have You Smoked Tobacco? 15 [id number] Information not available 05/12/2020 Sex: Unknown Functional Status Question Answer Note LastModified by Organization D etails LastModified Time Do you or have you ever used any other forms of tobacco or nicotine? No [email or web address] Information not available 01/21/2022 Mental Status None recorded. Family History Relationship [...] Artery Disease N Other N Gout N Blood Diseases N Kidney Stones N Blood Transfusion N Breast Cancer N COPD N Depression N Lung Disease N Defects or Inherited Disease N Anxiety Disorder N Muscle, Joint, or Bone Problems N Obesity N Vision or Eye Problems N Arthritis N Polyps N Infertility N Mental Disorder N Cancer N Varicosities N Stroke N Endometriosis N Bladder or Kidney Problems [...] quadrivalent, preservative 03/19/20 21 completed Supriya gann [facility] 03/22/2021 11:37:12 COVID-19, mRNA, LNP-S, PF, 100 mcg/0.5mL dose or 50 mcg/0.25mL dose 04/30/20 21 completed Fran Ovalle DO [address] [place] [address], [address], [facility] 05/02/2021 09:23:55 pneumococcal polysaccharide PPV23 05/03/20 21 completed Supriya gann [facility] 05/04/2021 08:11:03 COVID-19, mRNA, LNP-S, PF, 100 mcg/0.5mL dose or 50 mcg/0.25mL dose 10/07/19 22 completed Supriya gann [facility] 10/08/2021 08:19:08 Influenza, split virus, quadrivalent, preservative 03/02/20 22 completed Fran Ovalle DO [address] [place] [address], [address], [facility] 03/03/2022 08:46:03 Influenza, split virus, quadrivalent, preservative 03/02/20 22 completed Supriya gann [facility] 03/04/2022 08:36:46 COVID-19, mRNA, LNP-S, PF, 100 mcg/0.5mL dose or 50 mcg/0.25mL dose 03/21/20 22 [facility] 03/22/2022 09:11:03 Pneumococcal conjugate PCV20, polysaccharide [id number] conjugate, adjuvant, PF 06/15/20 23 completed Fran Ovalle DO [address] [place] [address], [address], [facility] 06/17/2023 09:12:24 Pneumococcal conjugate PCV20, polysaccharide [id number] conjugate, adjuvant, PF 06/15/20 23 completed Fran Ovalle DO [address] [place] [address], [address], [facility] 06/17/2023 13:06:03 SARS-COV-2 (COVID-19) vaccine, UNSPECIFIED 09/16/19 24 [facility] 09/18/2023 08:42:03 Influenza, split virus, quadrivalent, preservative 03/30/20 20 [facility] 04/03/2020 08:04:37 Pneumococcal conjugate PCV 13 04/24/20 20 completed Fran Ovalle DO [address] [place] [address], [address], [facility] 04/26/2020 15:18:42 Tdap 04/24/20 20 completed Fran Ovalle DO [address] [place] [address], [address], [facility] 04/26/2020 15:18:54 zoster recombinant 06/09/20 20 [facility] 06/10/2020 15:54:34 zoster recombinant 04/01/20 20 completed Supriya gann [facility] 07/01/2020 09:22:41 COVID-19, mRNA, LNP-S, PF, 100 mcg/0.5mL dose or 50 mcg/0.25mL dose 09/25/19 21 completed Fran Ovalle DO [address] [place], [address], [facility] 09/27/2020 08:09:09 COVID-19, mRNA, LNP-S, PF, 100 mcg/0.5mL dose or 50 mcg/0.25mL dose 10/24/19 21 completed Fran Ovalle DO [address] [place], [address], [facility] 10/26/2020 08:23:32 Past Encounters Encounter ID Performer Location Encounter Start Date Encounter Closed Date Diagnosis/Indication Diagnosis SNOMED-CT Code Diagnosis ICD10 Code Diagnosis Note [id number] Fran Ovalle [facility] [address] [place] [address],[place] [address] 11/24/2017 10:33:14 11/24/2017 11:31:24 Type 2 diabetes mellitus 78611013 E11.9 a1c is 5.7 doing great Essential hypertension 86794598 I10 excellent and no issues no dizzines Allergic rhinitis 421884 04 J30.9 try otc patanol for eyes Generalize d anxiety disorder 67212846 F41.1 [id number] Fran Ovalle [facility] Internal [address],[place] [address] 02/20/2018 10:35:40 02/23/2018 08:44:26 Essential hypertension 39352823 I10 excellent and no issues no dizzines Tobacco de pendence syndrome 23544178 F17.200 wishes to try wellbutrin will order next visit in 2 weeks Type 2 yosvany betes mellitus 10974601 E11.9 needs lab for f/u visit in 2 weeks Cervical radiculopathy 91018463 M54.12 will begin w/u and order spine xray as well as dose pk and a f/u vist will prob need MRI given radiculopa thy signs and hx of known cerv disc disease [id number] Fran Ovalle [facility] Internal [address],[place] [address] 03/09/2018 09:00:21 03/09/2018 12:16:54 Type 2 diabetes mellitus 41685813 E11.9 a1c is 6,.0 and is doing well Essential hypertension 19560107 I10 excellent but having lightheade dness in the am and upon arising fro seated position occurs with lying down too so could be vertigo positional will lower dose of atenolol to 25 mg and see what happens Tobacco de pendence syndrome 08702917 F17.200 wishes to try wellbutrin will start now Panic attack 740244730 F 41.0 renew the klonopin Myoclonus 11693864 G25.3 using clonazepam for years with good results [id number] Fran Ovalle DO [facility] [address] [facility],[place] [address] 06/18/2018 11:21:02 06/18/2018 16:12:11 Type 2 diabetes mellitus 34856140 E11.9 a1c is 5.8 and is doing well and there are no new issues vision is good good eye exam hearing is good bowels are ok bladder ok Essential hypertension 00004593 I10 excellent but having lightheade dness in the am and upon arising fro seated position occurs with lying down too so could be vertigo positional so we lowered the dose of atenolol to 25 mg and symptoms are gone and bp is still excellent Obesity 620258575 E66.9 Tobacco de pendence syndrome 86019492 F17.200 tried wellbutrin and is down to 4 cigg a day and is doin g quite well disvcussio n re this [id number] Fran Ovalle DO [facility] [address] [facility],[place] [address] 10/15/2018 10:01:35 10/15/2018 11:05:38 Type 2 diabetes mellitus 48427973 E11.9 a1c is 5.8 and is doing well and there are no new issues vision is good good eye exam hearing is good bowels are ok bladder ok Essential hypertension 77020295 I10 excellent but having lightheade dness in the am and upon arising fro seated position occurs with lying down too so could be vertigo positional so we lowered the dose of atenolol to 25 mg and symptoms are gone and bp is still excellent Diverticulitis 725224427 K57.92 will use augmentin [id number] Fran Ovalle DO [facility] [address] [facility], ite [facility] [place] [address] 02/13/2019 08:53:49 02/13/2019 09:17:55 Hepatitis C screening 306381251 Z11.59 Essential hypertension 28779619 I10 excellent but having lightheade dness in the am and upon arising fro seated position occurs with lying down too so could be vertigo positional so we lowered the dose of atenolol to 25 mg and symptoms are gone and bp is still excellent Type 2 yosvany betes mellitus 27002415 E11.9 a1c is 5.7 and is doing well and there are no new issues vision is good good eye exam hearing is good [place] [id number] Fran Ovalle [facility] Internal [facility] [address] [facility],[place] [address] 06/19/2019 09:04:09 06/19/2019 09:34:28 Type 2 diabetes mellitus 44622329 E11.9 a1c is 5.6 and is doing well and there are no new issues vision is good good eye exam hearing is good bowels are ok bladder ok Essential hypertension 16136971 I10 excellent but having lightheade dness in the am and upon arising fro seated position occurs with lying down too so could be vertigo positional so we lowered the dose of atenolol to 25 mg and symptoms are gone and bp is still excellent [id number] [place] [address] 12/13/2019 08:59:25 12/13/2019 10:12:30 Type 2 diabetes mellitus 55139000 E11.9 a1c is 6.0 and is doing well and there are no new issues vision is good good eye exam eyelashes are still a prob on occ hearing is good bowels are ok bladder ok Essential hypertension 38092103 I10 excellent but having lightheade dness in the am and upon arising fro seated position occurs with lying down too so could be vertigo positional so we lowered the dose of atenolol to 25 mg and symptoms are gone and bp is still excellent Anxiety 25872431 F41.9 stable Hypercholesterolemia 136 73731 E78.00 [id number] Fran Ovalle [facility] [address] [facility],[place] [address] 03/11/2020 08:17:55 03/11/2020 16:27:05 Rhabdomyolysis 304120589 M62.82 resolved Acute kidney injury 1466 9001 N17.9 resolved Syncope 890537573 R55 resolved Diverticulitis 382046357 K57.92 resolved [id number] Fran Ovalle [facility] [address] [facility] [address] 03/30/2020 09:50:28 03/30/2020 11:13:32 Adult health examination 153104096 Z00.00 Screening for cardiovascular system disease 558852750 Z13.6 reviewed cholest results LDL 95 Screening for malignant neoplasm of colon 958878110 Z12.11 colonoscop y not needed has neg occult stool Type 2 yosvany betes mellitus 13840064 E11.9 a1c is 5.6 and is doing well and there are no new issues vision is good exam is normal good eye exam eyelashes are still a prob on occ hearing is good bowels are ok bladder ok will try off the metformin rechk a1c before xmas Rhabdomyolysis 112727235 M62.82 will rechk lab nexxt draw but looks completely resolved [id number] Fran Ovalle [facility] [address] [facility],[place] [address] 07/01/2020 09:16:39 07/01/2020 10:02:18 Type 2 diabetes mellitus 31242524 E11.9 a1c is 5.5 and is doing [...] the inactive status which is wonderful Anxiety 89044634 F41.9 stable Essential hypertension 55323714 I10 excellent but having lightheade dness in the am and upon arising fro seated position occurs with lying down too so could be vertigo positional so we lowered the dose of atenolol to 25 mg and symptoms are gone and bp is still excellent [id number] Farn Ovalle [facility] [address] [facility],[place] [address] 11/13/2020 08:49:59 11/13/2020 09:24:40 Essential hypertension 49301148 I10 BP excellent today doing well on his medication Anxiety 33282351 F41.9 stable Tobacco de pendence syndrome 60181638 F17.200 tried wellbutrin and is down to 2 cigg a day and is doing quite well [id number] Fran Ovalle DO [facility] [address] [facility] [place] [address] 02/24/2021 08:51:44 02/24/2021 09:21:54 Essential hypertension 69648484 I10 BP excellent today doing well on his medication History of depression 16 1348580 Z86.59 doing well Type 2 yosvany betes mellitus 43748910 E11.9 NO LONGER AN ACTIVE DIAGNOSIS IS [...] impaired fast gluc Impaired f asting glycemia 129270961 R73.01 rechk a1c in 6 mo [id number] Fran Ovalle DO [facility] Medicine [address] [facility] [place] [address] 09/20/2021 10:33:50 09/21/2021 11:10:10 Type 2 diabetes mellitus 87837491 E11.[address] acic back pain 264892926 M54.6 ?MSK pain but not reproducib le today in office with exam Diverticulitis 671399882 K57.32 treat for possible diverticul itis Left flank pain 14756861 9 R10.0 ?kidney infection vs diverticul itisif start on cipro will treat both possible MSK pain from thoracic region but no pain reproduced today in office with palpation, bending, twisting or extension [id number] Fran Ovalle DO [facility] Medicine [address] [facility] [place] [address],[place] [address] 09/24/2021 09:43:09 09/24/2021 12:19:52 Impaired fasting glycemia 251506609 R73.01 rechk a1c in 6 mo Essential hypertension 69647330 I10 BP excellent today doing well on his medication Tobacco de pendence syndrome 07332025 F17.200 tried wellbutrin and is down to 2 cigg a day and is doing quite well Dysplastic nevus of skin 795641693 D22.9 dermatolog ist will be removing next week from left forearm [id number] Fran Ovalle [facility] [address] [facility],[place] [address] 01/21/2022 08:57:16 01/21/2022 10:54:01 Impaired fasting glycemia 073690972 R73.01 rechk a1c in 6 mo 5.8 Tobacco de pendence syndrome 64606084 F17.200 tried wellbutrin and is down to 2 cigg a day and is doing quite well Essential hypertension 50595078 I10 BP excellent today doing well on his medication Advance care planning 71 3407454 Z71.89 done [id number] Fran Ovalle [facility] Medicine [address] [facility],[place] [address] 07/13/2022 10:27:24 07/13/2022 11:39:38 Essential hypertension 96155390 I10 BP excellent today doing well on his medication Impaired f asting glycemia 301964395 R73.01 rechk a1c in 6 mo 5.6 this time5.8 last time Rhabdomyolysis [id number] M62.82 lab findings have been stable for most part and with excellent bp and no DM we expect this to remain stable but we will follow as necess [id number] Fran Ovalle [facility] Internal Medicine [address] [facility], [place] [address] [address] 01/18/2023 09:16:59 01/18/2023 09:43:45 Impaired fasting glycemia [id number] R73.01 a1c is now 5.4chk a1c in 6 mo was5.65.8 last time Essential hypertension [id number] I10 BP excellent today doing well on his medication Advance care planning 71 [id number] Z71.89 done Screening for malignant neoplasm of colon [id number] Z12.11 colonoscop y not needed has neg occult stool Anxiety 75839070 F41.9 stable [id number] Fran Law Em [facility] Internal Medicine [address] [facility] [place] [address] [address] [place] [address] 07/12/2023 07:50:01 07/12/2023 13:41:16 Impaired fasting glycemia 851867564 R73.01 a1c is now 5.7chk a1c in 6 mo was5.65.8 last time Essential hypertension 75962980 I10 BP excellent today doing well on his medication [id number] Fran Law Em [facility] Internal Medicine [address] [facility], [place] [address] [address] 12/01/2023 08:53:25 12/01/2023 11:08:02 Depression screening [id number] Z13.31 neg Essential hypertension 84844288 I10 BP excellent today doing well on his medication Osteoarthr itis of knee 658000738 M17.11 is doing a lot of walking no major issues pain has resolved [id number] Fran BarbozaSemaj Ovalle [facility] Internal Medicine [address] [facility], [place] [address] [address] 06/28/2024 10:27:50 06/28/2024 11:37:12 Osteoarthritis of knee [id number] M17.11 is doing a lot of walking no major issues pain has resolved Hypotensive episode 6776 3001 I95.9 now stable believe this is secondary to a reaction of his meds Anxiety 98112715 F41.9 stable cont current [id number] Fran BarbozaSemaj Ovalle [facility] Internal Medicine [address] [facility] [place] [address] [address] 09/11/2024 09:35:00 09/11/2024 12:18:00 Essential hypertension 07245198 I10 BP excellent today doing well on his medication Impaired f asting glycemia 725477335 R73.01 he is now done with this dx we will send to historical column a1c is now 5.8 5.7chk a1c in 6 mo was5.65.8 last time Depression screening 171 788377 Z13.31 neg Tobacco de pendence syndrome 41446965 F17.200 tried wellbutrin and is down to 2 cigg a day and is doing quite well Anxiety 42560861 F41.9 wishes to come off the meds we will decrease the dose to once a day of bupropion for a week then stop we will reduce the duloxetine to 30 for several weeks then wean off Insomnia 927466972 G47.0 0 about the same wishes to cont the clonazepam Hypotensive episode 6776 3001 I95.9 now stable believe this is secondary to a reaction of his medswill switch the terazosin to bedtime Health Concerns Section Related Observation LastModified by Organization Detai ls LastModified Time None Recorded Concern Status LastModified by Organization Details LastModified Time None Recorded Advance Directives Directive None Recorded Payers Insurance Date Sequence Insurance Name Policy Number Policy Norris Covered Member ID Norris Member ID Guarantor Name 09/09/2024 1 [facility] (MEDICARE REPLACEMENT/A DVANTAGE - PPO) [id number] Asher David [id number] Asher David 09/09/2024 1 [employer] [id number] 1 Asher David [id number] Asher David 06/28/2024 2 MEDICARE [place]: [employer] Asher David [id number] Asher David Notes Date Note Type Note Provider Name and Address Organization Details Recorded Time 01/19/20 23 text/htm l The patient denies [...] has stayed there Fran Ovalle DO [address] [place], [address], [facility] Internal Medicine 01/18/2023 09:37:39 07/12/19 24 text/htm l here for repatient is evaluated via tele/video assessment per patient consentduring current pandemic Fran Ovalle DO [address] [place], [address], [facility] Internal Medicine 07/12/2023 09:17:07 12/01/19 24 text/htm l doing well and feel sgood pollen is a problemno cp no sobno bowel probbladder okappetite goodsleep is fairdoes have some bunions Fran Ovalle DO [address] [place], [address], [facility] Internal Medicine 12/01/2023 09:44:03 06/28/20 24 text/htm l here since hospitalizationrelates not sure why his bp had dropped like it didcurrently is feeling good now eating oksleep is fair;note in hosp had a pos bld for amphetamines which he denies and point s out correct that the combo of dulox and bupropion have caused pos amphet test Fran Ovalle DO [address] [place], [address], [facility] Internal [facility] 06/28/2024 11:29:25
[2025-01-14 10:52] LABS: Hematocrit 41.3 % (42.0-52.0); Hemoglobin 14.7 g/dl (14.0-18.0); Imm Gran Abs Auto 0.02 X10*3/uL (0.00-0.03); Imm Gran Pct Auto 0.3 % (0.0-0.4); Lymphocytes Absolute Auto 2.6 X10*3/uL (1.2-4.9); Mean Corpuscular HGB Conc 35.6 g/dl (31.0-36.0); Mean Corpuscular Hemoglobin 33.2 pg (27.0-33.0); Mean Corpuscular Volume 93.2 fL (80.0-98.0); NRBC Abs Auto 0.000 X10*3/uL (0.0-0.012); NRBC Pct Auto 0.0 /100WBC (0.0-0.2); Platelet Count 204 X10*3/uL (160-400); Red Blood Count 4.43 X10*6/uL (4.60-5.80); White Blood Count 8.0 X10*3/uL (4.8-10.8)
[2025-01-14 11:25] LABS: Alanine Aminotransferase 47 U/L (0-40); Albumin Level 4.2 g/dL (3.5-5.0); Alkaline Phosphatase 61 U/L (39-117); Anion Gap 9 (12-20); Aspartate Amino Transferase 40 U/L (5-37); Blood Urea Nitrogen 15 mg/dL (9-16); Calcium 9.3 mg/dL (8.4-10.2); Carbon Dioxide 31 mmol/L (22-29); Chloride 104 mmol/L (96-108); Estimated Glomerular Filt Rate > 60; Potassium 4.7 mmol/L (3.3-5.1); Sodium 139 mmol/L (135-145); Total Protein 6.4 g/dL (6.5-8.0)
[2025-01-14 11:39] LABS: PSA,Total (Free>4and<10) 4.02 ng/mL (0.00-4.00)
[2025-01-14 11:40] LABS: Hemoglobin A1C 143.5665 umol/L; Total Hemoglobin (HGBA1C) 3852.6800 umol/L
[2025-01-15 11:47] LABS: Free Prostate Spec Ag 0.5 ng/mL; Percent Free Prostate Spec Ag 14 % (calc) (>25)
== END 2025-01-14 10:06 | disposition home or self-care (01) ==
LOC: HO.LAB 10:05
PROVIDERS: PCP Internal Medicine; Visit Provider Internal Medicine
DX: I10 Essential (primary) hypertension (principal)
CPT/HCPCS: 36415; 80053; 83036; 84153; 84154; 85025